=== PATIENT | female | born 1950 | race Caucasian/White ===

== ENCOUNTER 2019-02-13 13:20 | Inpatient (IN) | payer MEDICARE, BC ==
[2019-02-13] MEDS ORDERED: Albuterol/Ipratropium 3.0-0.5 MG/3 ML Neb Soln NEB ONE ×2 (13:36→15:23)
--- NOTE | 2019-02-13 13:42 | EDM.PDOC ---
ED HPI GENERAL MEDICAL PROBLEM - General Chief Complaint: Respiratory Problem Stated Complaint: shortness of breath Time Seen by Provider: 02/13/19 13:30 Source of Information: Reports: Patient History Limitations: Reports: No Limitations - History of Present Illness INITIAL COMMENTS - FREE TEXT/NARRATIVE: 68 YO WF presents to ER with productive cough, subjective fever and progressive shortness of breath x 6 days. Pt with remote history of tobacco use. Pt with history of chronic bronchitis/COPD in the past. Pt denies any chest pain, nausea /vomiting, hemoptysis. Pt reports using her rescue inhaler 3x/day over the last 6 days with minimal improvement. Pt denies supplemental oxygen use in the past, but required O2 once paramedics arrived due to progressive shortness of breath. Pt reports getting pneumococcal vaccine but denies influenza. Onset Date: 02/07/19 Duration: Day(s): (6) Location: Reports: Chest Severity: Moderate Improves with: Reports: Rest Worsens with: Reports: Breathing Associated Symptoms: Reports: cough w sputum, Fever/Chills, Malaise, Shortness of Breath. Denies: Chest Pain, Diaphoresis, Headaches, Loss of Appetite, Nausea /Vomiting, Rash, Seizure, Syncope, Weakness - Related Data Allergies Allergy/AdvReac Type Severity Reaction Status Date / Time bacitracin [From Cortisporin] Allergy RED EYES Verified 02/13/19 13:37 bacitracin zinc Allergy RED EYES Verified 02/13/19 13:37 [From Cortisporin] ciprofloxacin Allergy Hives Verified 02/13/19 13:37 codeine Allergy Nausea Verified 02/13/19 13:37 hydrocortisone Allergy RED EYES Verified 02/13/19 13:37 [From Cortisporin] morphine Allergy RUNNY Verified 02/13/19 13:37 NOSE/WATERY EYES neomycin [From Cortisporin] Allergy RED EYES Verified 02/13/19 13:37 neomycin sulfate Allergy RED EYES Verified 02/13/19 13:37 [From Cortisporin] Penicillins Allergy Hives Verified 02/13/19 13:37 phenazopyridine HCl Allergy UNKNOWN Verified 02/13/19 13:37 [From Pyridium] polymyxin B Allergy RED EYES Verified 02/13/19 13:37 [From Cortisporin] polymyxin B sulfate Allergy RED EYES Verified 02/13/19 13:37 [From Cortisporin] prednisone Allergy Hallucinati Verified 02/13/19 15:05 ons Euinzkh-Oew-Qus Reductase Allergy Leg Cramps Verified 02/13/19 15:05 Inhibitor Home Meds: Home Meds Aspirin [Halfprin] 81 mg PO BRK 06/25/15 [History] Cholecalciferol (Vitamin D3) [Vitamin D3] 2,000 units PO DAILY 06/25/15 [History ] Cyanocobalamin (Vitamin B-12) [Vitamin B-12] 2,000 mcg PO DAILY 06/25/15 [ History] ALPRAZolam [Alprazolam] 0.25 mg PO BEDTIME PRN 02/13/19 [History] Albuterol Sulfate [Albuterol Sulfate Hfa] 2 puff INH Q6H PRN 02/13/19 [History] Alendronate Sodium [Fosamax] 70 mg PO ACBREAKFAST 02/13/19 [History] Ezetimibe [Zetia] 10 mg PO DAILY 02/13/19 [History] Magnesium Oxide 500 mg PO DAILY 02/13/19 [History] Metoprolol Tartrate [Lopressor] 50 mg PO BID 02/13/19 [History] Mirtazapine [Remeron] 30 mg PO BEDTIME 02/13/19 [History] Sertraline [Zoloft] 25 mg PO DAILY 02/13/19 [History] ED ROS GENERAL - Review of Systems Review Of Systems: See Below Constitutional: Reports: No Symptoms HEENT: Reports: No Symptoms Respiratory: Reports: Shortness of Breath, Wheezing, Cough, Sputum. Denies: Hemoptysis Cardiovascular: Reports: No Symptoms Endocrine: Reports: No Symptoms GI/Abdominal: Reports: No Symptoms : Reports: No Symptoms Musculoskeletal: Reports: No Symptoms Skin: Reports: No Symptoms Neurological: Reports: No Symptoms Psychiatric: Reports: No Symptoms Hematologic/Lymphatic: Reports: No Symptoms Immunologic: Reports: No Symptoms ED EXAM, GENERAL - Physical Exam Exam: See Below Exam Limited By: No Limitations General Appearance: Alert, WD/WN, No Apparent Distress Nose: Normal Inspection, Normal Mucosa, No Blood Throat/Mouth: Normal Inspection, Normal Lips, Normal Teeth, Normal Gums, Normal Oropharynx, Normal Voice, No Airway Compromise Head: Atraumatic, Normocephalic Neck: Normal Inspection, Supple, Non-Tender, Full Range of Motion Respiratory/Chest: Chest Non-Tender, Rales, Wheezing, Accessory Muscle Use, Prolonged Expiration Cardiovascular: Normal Peripheral Pulses, Regular Rate, Rhythm, No Edema, No Gallop, No JVD, No Murmur, No Rub GI/Abdominal: Normal Bowel Sounds, Soft, Non-Tender, No Organomegaly, No Distention, No Abnormal Bruit, No Mass Back Exam: Normal Inspection, Full Range of Motion, NT Extremities: Normal Inspection, Normal Range of Motion, Non-Tender, Normal Capillary Refill, No Pedal Edema Neurological: Alert, Oriented, CN II-XII Intact, Normal Cognition, Normal Gait, Normal Reflexes, No Motor/Sensory Deficits Psychiatric: Normal Affect, Normal Mood Skin Exam: Warm, Dry, Intact, Normal Color, No Rash Lymphatic: No Adenopathy EKG INTERPRETATION EKG Date: 02/13/19 Time: 13:49 Rhythm: NSR Rate (Beats/Min): 90 [place]: Normal P-Wave: Present QRS: Normal ST-T: Normal QT: Normal Course - Vital Signs Last Recorded V/S: Last Vital Signs Temp 35.4 C 02/13/19 13:20 Pulse 90 02/13/19 13:20 Resp 20 02/13/19 13:20 BP 105/66 02/13/19 13:20 Pulse Ox 98 02/13/19 13:20 - Orders/Labs/Meds Orders: Active Orders 24 hr Category Date Time Status Cardiac Monitoring [RC] . DIRECTED Care 02/13/19 13:36 Active EKG Documentation Completion [RC] ASDIRECTED Care 02/13/19 13:37 Active Oxygen Therapy, ED [RC] ASDIRECTED Care 02/13/19 13:36 Active RT Aerosol Therapy [RC] ASDIRECTED Care 02/13/19 13:37 Active RT Aerosol Therapy [RC] ASDIRECTED Care 02/13/19 15:23 Active Labs: Laboratory Tests 02/13/19 02/13/19 Range/Units 14:15 14:15 WBC 8.41 (5.00-10.00) 10^3/uL RBC 5.84 H (3.80-5.50) 10^6/uL Hgb 16.8 H (12.0-16.0) g/dL Hct 51.3 H (37.0-47.0) % MCV 87.8 (82.0-92.0) fL MCH 28.8 (27.0-31.0) pg MCHC 32.7 (32.0-36.0) g/dL RDW 13.9 (11.5-14.5) % Plt Count 218 (150-400) 10^3/uL MPV 10.4 (7.4-10.4) fL Immature Gran % (Auto) 0.2 (0.0-5.0) % Neut % (Auto) 70.9 H (50.0-70.0) % Lymph % (Auto) 20.6 (20.0-40.0) % Walsh % (Auto) 8.1 H (2.0-8.0) % Eos % (Auto) 0.0 L (1.0-3.0) % Baso % (Auto) 0.2 (0.0-1.0) % Immature Gran # (Auto) 0.02 (0.00-0.50) 10^3/uL Neut # (Auto) 5.96 (2.50-7.00) 10^3/uL Lymph # (Auto) 1.73 (1.00-4.00) 10^3/uL Walsh # (Auto) 0.68 (0.10-0.80) 10^3/uL Eos # (Auto) 0.00 L (0.10-0.30) 10^3/uL Baso # (Auto) 0.02 (0.00-0.10) 10^3/uL Sodium 140 (136-145) mmol/L Potassium 4.0 (3.3-5.3) mmol/L Chloride 102 (98-115) mmol/L Carbon Dioxide 27.8 (21.0-32.0) mmol/L Anion Gap 14.2 (5-15) mmol/L BUN 30 H (6-25) mg/dL Creatinine 1.30 H (0.51-1.17) mg/dL Est Cr Clr Drug Dosing 33.78 mL/min Estimated GFR (MDRD) 41 mL/min Glucose 123 H (75 - 99) mg/dL Calcium 9.5 (8.7-10.3) mg/dL Total Bilirubin 0.3 (0.2-1.0) mg/dL AST 32 (15-37) U/L ALT 38 (12-78) U/L Alkaline Phosphatase 75 (46-116) IU/L Creatine Kinase 45 (26-276) U/L CK-MB (CK-2) 0.70 (0.00-4.30) ng/mL Troponin I 0.07 (0.00-0.070) ng/mL B-Natriuretic Peptide 60 (0-100) pg/mL Total Protein 7.7 (6.4-8.2) g/dL Albumin 2.89 L (3.00-4.80) g/dL Meds: Medications Discontinued Medications Generic Name Dose Route Start Last Admin Trade Name Freq PRN Reason Stop Dose Admin Albuterol/Ipratropium 3 ml 02/13/19 13:36 02/13/19 13:43 Duoneb 3.0-0.5 Mg/3 Ml NEB 02/13/19 13:37 3 ml ONETIME ONE Administration Albuterol/Ipratropium 3 ml 02/13/19 15:23 02/13/19 15:32 Duoneb 3.0-0.5 Mg/3 Ml NEB 02/13/19 15:24 3 ml ONETIME ONE Administration Methylprednisolone Sodium Succinate 125 mg 02/13/19 15:14 02/13/19 15:32 Solu-Medrol IVPUSH 02/13/19 15:15 125 mg ONETIME ONE Administration - Radiology Interpretation Free Text/Narrative:: CXR- NAD Departure - Departure Time of Disposition: 15:43 Disposition: Admitted As Inpatient 65 Condition: Fair Clinical Impression: COPD exacerbation - Discharge Information Referrals: Mariel Beckwith, [employer] [Primary Care Provider] - Forms: ED Department Discharge - My Orders Last 24 Hours: My Active Orders 02/13/19 13:36 Cardiac Monitoring [RC] . DIRECTED Oxygen Therapy, ED [RC] ASDIRECTED 02/13/19 13:37 EKG Documentation Completion [RC] ASDIRECTED RT Aerosol Therapy [RC] ASDIRECTED 02/13/19 15:23 RT Aerosol Therapy [RC] ASDIRECTED - Assessment/Plan Last 24 Hours: My Active Orders 02/13/19 13:36 Cardiac Monitoring [RC] . DIRECTED Oxygen Therapy, ED [RC] ASDIRECTED 02/13/19 13:37 EKG Documentation Completion [RC] ASDIRECTED RT Aerosol Therapy [RC] ASDIRECTED 02/13/19 15:23 RT Aerosol Therapy [RC] ASDIRECTED Assessment:: 1. COPD exacerbation Plan: 1. Admit to medicine- Dr Mathew Sheikh 2. duonebs Q4 and PRN 3. solumedrol 80mg Q8 4. supplemental O2
[2019-02-13 14:52] LABS: ANION GAP 14.2 mmol/L (5-15)
--- NOTE | 2019-02-13 14:52 | CR ---
[id number] RAD/RAD Chest PA And Lateral EXAM: RAD Chest PA And Lateral CLINICAL DATA: SHORTNESS OF BREATH COMPARISON: NO PREVIOUS SIMILAR EXAM IS AVAILABLE. FINDINGS: There appears to be mild edema The lungs are hyperaerated The cardiomediastinal contour is upper normal IMPRESSION: APPEARANCE OF MILD EDEMA William Hernandez MD 02/13/19 [id number] Thank you for allowing us to participate in the care of your patient.
[2019-02-13] MEDS ORDERED: methylPREDNISolone Sodium Succinate 125 MG/2 ML SDV IVPUSH ONE (15:14)
[2019-02-13] MEDS ORDERED: Sodium Chloride 0.9% 10 ML Syringe FLUSH PRN (15:44)
[2019-02-13] MEDS ORDERED: ALPRAZolam 0.25 MG Tab PO PRN (15:59)
[2019-02-13] MEDS ORDERED: Albuterol 8 GM Inhaler INH PRN (15:59)
[2019-02-13] MEDS: Albuterol/Ipratropium 3.0-0.5 MG/3 ML Neb Soln NEB SCH ×3 (16:35→23:41)
[2019-02-13] MEDS ORDERED: Ondansetron 4 MG/2 ML SDV IVPUSH PRN (17:11)
[2019-02-13] MEDS: cefTRIAXone 1 GM Vial IVPUSH SCH (17:56)
[2019-02-13] MEDS: Metoprolol Tartrate 50 MG Tab PO SCH (20:32)
[2019-02-13] MEDS ORDERED: Mirtazapine 15 MG Tab PO SCH (21:00)
[2019-02-14] MEDS: Albuterol/Ipratropium 3.0-0.5 MG/3 ML Neb Soln NEB SCH ×5 (04:43→23:29)
[2019-02-14] MEDS ORDERED: Alendronate 70 MG Tab PO SCH (07:30)
[2019-02-14 07:41] LABS: ANION GAP 14.3 mmol/L (5-15)
[2019-02-14] MEDS ORDERED: predniSONE 20 MG Tab PO SCH (08:00)
[2019-02-14] MEDS: Aspirin 81 MG Tab.EC PO SCH (08:04)
[2019-02-14] MEDS: Cholecalciferol (Vitamin D3) 25 MCG Tab PO SCH (08:04)
[2019-02-14] MEDS: Sertraline 50 MG Tab PO SCH (08:05)
[2019-02-14] MEDS: Cyanocobalamin (Vitamin B12) 500 MCG Tab PO SCH (08:05)
[2019-02-14] MEDS: Magnesium Oxide 500 MG Tab PO SCH ×2 (08:05→10:01)
[2019-02-14] MEDS: Metoprolol Tartrate 50 MG Tab PO SCH ×2 (08:06→20:55)
[2019-02-14] MEDS: Ezetimibe 10 MG Tab PO SCH (08:09)
[2019-02-14] MEDS ORDERED: methylPREDNISolone Sodium Succinate 125 MG/2 ML SDV IVPUSH SCH (09:00)
--- NOTE | 2019-02-14 09:18 | PCM.PN ---
- General Info Date of Service: 02/14/19 Functional Status: Reports: Pain Controlled, Tolerating Diet, Ambulating, Urinating. Denies: New Symptoms - Review of Systems General: Reports: Weakness, Fatigue, Appetite. Denies: Fever, Chills HEENT: Reports: No Symptoms Pulmonary: Reports: Cough, Sputum, Wheezing. Denies: Shortness of Breath, Hemoptysis Cardiovascular: Denies: Chest Pain, Palpitations, Edema Gastrointestinal: Denies: Abdominal Pain, Nausea, Vomiting Genitourinary: Denies: Dysuria, Hematuria Musculoskeletal: Reports: No Symptoms Skin: Reports: No Symptoms Neurological: Reports: Weakness. Denies: Headache, Trouble Speaking Psychiatric: Reports: No Symptoms - Patient Data Vitals - Most Recent: Last Vital Signs Temp 98.1 F 02/14/19 06:11 Pulse 82 02/14/19 08:06 Resp 24 H 02/14/19 06:11 BP 102/56 L 02/14/19 08:06 Pulse Ox 92 L 02/14/19 07:37 Weight - Most Recent: 170 lb 8 oz I&O - Last 24 Hours: Intake & Output 02/13/19 02/14/19 02/14/19 22:59 06:59 14:59 Intake Total 540 350 Balance 540 350 Lab Results Last 24 Hours: Laboratory Results - last 24 hr 02/13/19 02/13/19 02/14/19 Range/Units 14:15 14:15 07:10 WBC 8.41 4.94 L (5.00-10.00) 10^3/uL RBC 5.84 H 5.17 (3.80-5.50) 10^6/uL Hgb 16.8 H 14.8 D (12.0-16.0) g/dL Hct 51.3 H 45.2 (37.0-47.0) % MCV 87.8 87.4 (82.0-92.0) fL MCH 28.8 28.6 (27.0-31.0) pg MCHC 32.7 32.7 (32.0-36.0) g/dL RDW 13.9 13.5 (11.5-14.5) % Plt Count 218 199 (150-400) 10^3/uL MPV 10.4 10.5 H (7.4-10.4) fL Immature Gran % (Auto) 0.2 0.6 (0.0-5.0) % Neut % (Auto) 70.9 H 67.6 (50.0-70.0) % Lymph % (Auto) 20.6 22.7 (20.0-40.0) % Lyman % (Auto) 8.1 H 9.1 H (2.0-8.0) % Eos % (Auto) 0.0 L 0.0 L (1.0-3.0) % Baso % (Auto) 0.2 0.0 (0.0-1.0) % Immature Gran # (Auto) 0.02 0.03 (0.00-0.50) 10^3/uL Neut # (Auto) 5.96 3.34 (2.50-7.00) 10^3/uL Lymph # (Auto) 1.73 1.12 (1.00-4.00) 10^3/uL Lyman # (Auto) 0.68 0.45 (0.10-0.80) 10^3/uL Eos # (Auto) 0.00 L 0.00 L (0.10-0.30) 10^3/uL Baso # (Auto) 0.02 0.00 (0.00-0.10) 10^3/uL Atypical Lymphocytes Few Sodium 140 (136-145) mmol/L Potassium 4.0 (3.3-5.3) mmol/L Chloride 102 (98-115) mmol/L Carbon Dioxide 27.8 (21.0-32.0) mmol/L Anion Gap 14.2 (5-15) mmol/L BUN 30 H (6-25) mg/dL Creatinine 1.30 H (0.51-1.17) mg/dL Est Cr Clr Drug Dosing 33.78 mL/min Estimated GFR (MDRD) 41 mL/min Glucose 123 H (75 - 99) mg/dL Calcium 9.5 (8.7-10.3) mg/dL Total Bilirubin 0.3 (0.2-1.0) mg/dL AST 32 (15-37) U/L ALT 38 (12-78) U/L Alkaline Phosphatase 75 (46-116) IU/L Creatine Kinase 45 (26-276) U/L CK-MB (CK-2) 0.70 (0.00-4.30) ng/mL Troponin I 0.07 (0.00-0.070) ng/mL B-Natriuretic Peptide 60 (0-100) pg/mL Total Protein 7.7 (6.4-8.2) g/dL Albumin 2.89 L (3.00-4.80) g/dL 02/14/19 Range/Units 07:10 WBC (5.00-10.00) 10^3/uL RBC (3.80-5.50) 10^6/uL Hgb (12.0-16.0) g/dL Hct (37.0-47.0) % MCV (82.0-92.0) fL MCH (27.0-31.0) pg MCHC (32.0-36.0) g/dL RDW (11.5-14.5) % Plt Count (150-400) 10^3/uL MPV (7.4-10.4) fL Immature Gran % (Auto) (0.0-5.0) % Neut % (Auto) (50.0-70.0) % Lymph % (Auto) (20.0-40.0) % Lyman % (Auto) (2.0-8.0) % Eos % (Auto) (1.0-3.0) % Baso % (Auto) (0.0-1.0) % Immature Gran # (Auto) (0.00-0.50) 10^3/uL Neut # (Auto) (2.50-7.00) 10^3/uL Lymph # (Auto) (1.00-4.00) 10^3/uL Lyman # (Auto) (0.10-0.80) 10^3/uL Eos # (Auto) (0.10-0.30) 10^3/uL Baso # (Auto) (0.00-0.10) 10^3/uL Atypical Lymphocytes Sodium 140 (136-145) mmol/L Potassium 4.4 (3.3-5.3) mmol/L Chloride 102 (98-115) mmol/L Carbon Dioxide 28.1 (21.0-32.0) mmol/L Anion Gap 14.3 (5-15) mmol/L BUN 32 H (6-25) mg/dL Creatinine 1.11 (0.51-1.17) mg/dL Est Cr Clr Drug Dosing 39.57 mL/min Estimated GFR (MDRD) 49 mL/min Glucose 151 H (75 - 99) mg/dL Calcium 9.3 (8.7-10.3) mg/dL Total Bilirubin (0.2-1.0) mg/dL AST (15-37) U/L ALT (12-78) U/L Alkaline Phosphatase (46-116) IU/L Creatine Kinase (26-276) U/L CK-MB (CK-2) (0.00-4.30) ng/mL Troponin I (0.00-0.070) ng/mL B-Natriuretic Peptide (0-100) pg/mL Total Protein (6.4-8.2) g/dL Albumin (3.00-4.80) g/dL Med Orders - Current: Current Medications Albuterol (Ventolin Hfa) 0 gm INH Q6H PRN PRN Reason: Wheezing Albuterol/Ipratropium (Duoneb 3.0-0.5 Mg/3 Ml) 3 ml NEB Q4H [facility] Last Admin: 02/14/19 07:37 Dose: 3 ml Aspirin (Halfprin) 81 mg PO BRK [facility] Last Admin: 02/14/19 08:04 Dose: 81 mg Ceftriaxone Sodium (Rocephin) 1 gm IVPUSH Q24H [facility] Last Admin: 02/13/19 17:56 Dose: 1 gm Cholecalciferol (Vitamin D3) 50 mcg PO DAILY [facility] Last Admin: 02/14/19 08:04 Dose: 50 mcg Cyanocobalamin (Vitamin B12) 2,000 mcg PO DAILY [facility] Last Admin: 02/14/19 08:05 Dose: 2,000 mcg Ezetimibe (Zetia) 10 mg PO DAILY [facility] Last Admin: 02/14/19 08:09 Dose: 10 mg Magnesium Oxide (Magnesium Oxide) 500 mg PO DAILY [facility] Last Admin: 02/14/19 08:05 Dose: 500 mg Methylprednisolone Sodium Succinate (Solu-Medrol) 80 mg IVPUSH DAILY [facility] Last Admin: 02/14/19 08:07 Dose: 80 mg Metoprolol Tartrate (Lopressor) 50 mg PO BID [facility] Last Admin: 02/14/19 08:06 Dose: 50 mg Ondansetron HCl (Zofran) 4 mg IVPUSH Q6H PRN PRN Reason: Nausea/Vomiting Sertraline HCl (Zoloft) 25 mg PO DAILY [facility] Last Admin: 02/14/19 08:05 Dose: 25 mg Sodium Chloride (Saline Flush) 10 ml FLUSH Q8HR PRN PRN Reason: keep vein open Last Admin: 02/13/19 17:56 Dose: 10 ml Discontinued Medications Albuterol/Ipratropium (Duoneb 3.0-0.5 Mg/3 Ml) 3 ml NEB ONETIME ONE Stop: 02/13/19 13:37 Last Admin: 02/13/19 13:43 Dose: 3 ml Albuterol/Ipratropium (Duoneb 3.0-0.5 Mg/3 Ml) 3 ml NEB ONETIME ONE Stop: 02/13/19 15:24 Last Admin: 02/13/19 15:32 Dose: 3 ml Alendronate Sodium (Fosamax) 70 mg PO ACBREAKFAST [facility] Alprazolam (Xanax) 0.25 mg PO BEDTIME PRN PRN Reason: Anxiety Methylprednisolone Sodium Succinate (Solu-Medrol) 125 mg IVPUSH ONETIME ONE Stop: 02/13/19 15:15 Last Admin: 02/13/19 15:32 Dose: 125 mg Mirtazapine (Remeron) 30 mg PO BEDTIME VIJAY - Exam Quality Assessment: Supplemental Oxygen (3L/NC) General: Alert, Oriented, Cooperative, No Acute Distress HEENT: Pupils Equal, Pupils Reactive Neck: Supple, Trachea Midline Lungs: Wheezing (Expiratory wheezes, especially prominent in upper cheng; otherwise clear). No: Decreased Breath Sounds, Rales, Rhonchi, Rub Cardiovascular: Regular Rate, Regular Rhythm, No Murmurs GI/Abdominal Exam: Normal Bowel Sounds, Soft, Non-Tender, No Distention (Female) Exam: Deferred Back Exam: Normal Inspection Extremities: Normal Inspection, No Pedal Edema Peripheral Pulses: 2+: Dorsalis Pedis (L), Dorsalis Pedis (R) Skin: Warm, Dry Neurological: No New Focal Deficit, Normal Gait, Normal Speech, Strength Equal Bilateral Psy/Mental Status: Alert, Normal Affect, Normal Mood - Problem List Review Problem List Initiated/Reviewed/Updated: Yes - Plan Plan:: Progress Note 68 year old female admitted inpatient through the ED yesterday for COPD exacerbation. Patient states she had a productive cough for a week and developed shortness of breath that prevented her from walking across the room to the chair. There is no history of COPD or other chronic lung disease, however patient does have a 24.5 pack year smoking history. She states that she quit in 2016, but does still smoke several times a week. She has a rescue inhaler that she uses up to three times daily, but this provided her with little to no relief. She does not use supplemental oxygen at home, however she has been using oxygen to maintain saturation since EMS arrived. Prehospital course/Pertinent ED Findings: --VS: afebrile, EMS report 89% on room air, NRB mask applied to raise sat 98% on arrival --Labs: No neutrophilia, mild polycythemia, no electrolyte abnormalities, troponin 0.07 --EKG: NSR without ST-T wave changes --Duonebs given times two in the ED and a one time dose of Solu-Medrol 125mg IV x 1, started on antibiotics --Admitted inpatient to Dr. Carmona for COPD exacerbation, duonebs every four hours and PRN, and Solu-Medrol 80mg IV daily Primary Hospital Problems: --COPD exacerbation --Nicotine abuse --Weakness Chronic/Stable Problems: --CAD with stent; H/O NV 2010 continue on aspirin --Dylipidemia --HTN --CKD, stage 3 --Depression/anxiety --Insomnia --Osteopenia --Obesity Disposition/Overall Plan: --Continue inpatient stay --De-escalate the DuoNebs to every six hours --De-escalate IV Solu-Medrol to prednisone 40mg orally daily --Continue antibiotic, secondary to increased sputum production --RT to titrate oxygen; assess for home oxygen needs; --Peak flow --Pulmonary toileting --Assess oxygen requirements --DVT prophylaxis: Lovenox 40mg SQ every 24 hours --Assess ABG since new oxygen requirement --GI stress prophylaxis, secondary to ASA, Duonebs, Bisphosphonate, stress and smoking history: Omeprazole orally --ASCVD 13.1%; H/O NV with stenting, statin intolerant --Update Code status Discharge Planning: --Patient will need LABA/LAMA, will work with pharmacy for discharge --Nurses to assess immunization status --Ongoing tobacco cessation education --Anticipate discharge in the AM with intense education and pharmacological management --ASCVD 13.1%: H/O NV with stenting; statin intolerant; likely [employer] 9 candidate , needs to be followed up on outpatient --Will have pharmacy consult for history of statin use
--- NOTE | 2019-02-14 10:02 | HP ---
PATIENT PROFILE: The patient is a 68-year-old female patient who presents to the emergency room with productive cough, subjective fever, and progressive shortness of breath for the last 5 days. The patient has a remote history of tobacco usage. She has history of COPD/bronchitis/bronchial asthma in the past. She also has a history of coronary artery disease. She denied having any nausea, vomiting, hemoptysis. She has been using rescue inhaler 3 times a day, but for the last 6 days has not been noticing much improvement on the inhalers. She denies using supplemental oxygen in the past, but required oxygen once the paramedics arrived due to progressive shortness of breath. She does has a history of having received a pneumococcal vaccine, but denied any influenza vaccine. PAST MEDICAL HISTORY: Includes COPD, bronchial asthma, chronic anxiety, hypercholesterolemia, coronary artery disease, and depression. Also anxiety. FAMILY HISTORY: Nil significant. HOME MEDICATIONS: Include aspirin 81 mg daily, cholecalciferol D3 2000 units daily, B12 2000 mcg daily, alprazolam 0.25 mg at bedtime on a p.r.n. basis, albuterol 2 puffs inhalation q.6h p.r.n., alendronate 70 mg daily at breakfast, Zetia 10 mg daily, magnesium oxide 500 mg daily, metoprolol tartrate 50 mg b.i.d., Remeron 30 mg at bedtime, and Zoloft 25 mg daily. REVIEW OF SYSTEMS: HEAD: No complaints. EYES: No complaints. CHEST: See present history. CARDIOVASCULAR SYSTEM: No complaints of chest pain. No peripheral edema. GI: No complaints. BACK: No complaints. NEUROLOGICAL: No complaints. PSYCHIATRIC: No complaints. HEMATOLOGIC: No complaints. PHYSICAL EXAMINATION: GENERAL: Reveals a very pleasant, elderly patient in [id number] distress. My examination is performed at 7:30 p.m. VITAL SIGNS: Temperature is 35.4, pulse is around 100, respirations 20, blood pressure is 110/68, pulse oximeter 98%. HEENT: Head negative. Eyes, arcus senilis. Ears, nose, and throat normal. NECK: Supple. Full range of motion. No midline swellings. LUNGS: Reveal a few crackles bilaterally. Breath sounds are quiet. Not much air entry is noted. Percussion note is tympanic. HEART: Regular rhythm. Grade 1/6 systolic murmur in the apex. No thrills. ABDOMEN: Soft. No masses present. No hepatosplenomegaly. No abdominal bruits. Femoral pulses full. EXTREMITIES: Normal. NEUROLOGIC: Intact. RECTAL: Deferred. PELVIC: Deferred. LABORATORY DATA AND DIAGNOSTIC STUDIES: EKG shows normal P waves, normal sinus rhythm. Hemoglobin is 16.8, white count 8.41, neutrophils are 70.9, normal up to 70. Monos 8.1, normal 8. Chest x-ray shows mild edema. Also evidence of chronic obstructive pulmonary disease. The patient's BUN and creatinine are elevated. CMP shows creatinine 1.30 and BUN of 30. Glucose 123. Other values are negative. BNP is normal at 60. FINAL DIAGNOSES: 1. Acute exacerbation of chronic obstructive pulmonary disease. Rule out infectious process. Rule out acute bronchitis. Plan will be to start her on antibiotics, Rocephin, and continue to inhalation respiratory treatments with DuoNeb and albuterol on a p.r.n. basis. We will also give her IV steroids cautiously. 2. Coronary artery disease, stable. BNP stable. No evidence of congestive heart failure. 3. Chronic anxiety, stable. 4. Hypercholesterolemia. We will order lipid profile for the morning. 5. Osteoporosis, stable. 6. Hypertension, stable. 7. Insomnia, stable. 8. Depression, stable. 9. Mild dehydration. We will repeat the BUN and creatinine in the a.m. after adequate hydration. PLAN: Plan is to continue Zoloft for depression and Remeron for the insomnia, metoprolol 50 mg b.i.d. for hypertension, and Zetia 10 mg daily for hypercholesterolemia. Also, alendronate 70 mg daily for her osteoporosis. /[id number]/MODL
[2019-02-14] MEDS: Omeprazole 20 MG Cap.CR PO SCH (11:08)
[2019-02-14] MEDS: Enoxaparin 40 MG/0.4 ML Syringe SUBCUT SCH (11:08)
[2019-02-14 11:09] LABS: O2 FLOW RATE 3 L/min
[2019-02-14 11:10] LABS: BASE EXCESS ARTERIAL 5 mmol/L (-2-3); BICARBONATE,ARTERIAL 31.2 mmol/L (22-26); O2 SATURATION ARTERIAL 90 % (95-98); PCO2 ARTERIAL 58 mmHG (35-45); PO2 ARTERIAL 64 mmHG (80-105)
[2019-02-14 11:14] LABS: O2 DELIVERY DEVICE NASAL CANNULA
[2019-02-14] MEDS: cefTRIAXone 1 GM Vial IVPUSH SCH (16:20)
[2019-02-14] MEDS ORDERED: EPINEPHrine 1:10,000 1 MG/10 ML Syringe IVPUSH PRN (18:17)
[2019-02-14] MEDS ORDERED: Atropine 0.1 MG/ML 10 ML Syringe IVPUSH PRN (18:17)
[2019-02-14] MEDS ORDERED: Lidocaine 2% 100 MG/5 ML Syringe IVPUSH PRN (18:17)
[2019-02-14] MEDS ORDERED: Nitroglycerin 0.4 MG Tab.SL SL PRN (18:17)
[2019-02-14] MEDS ORDERED: Melatonin 3 MG Tab PO PRN (19:43)
[2019-02-15] MEDS: Albuterol/Ipratropium 3.0-0.5 MG/3 ML Neb Soln NEB SCH ×4 (05:45→23:05)
[2019-02-15] MEDS: Omeprazole 20 MG Cap.CR PO SCH (07:39)
[2019-02-15] MEDS ORDERED: predniSONE 20 MG Tab PO SCH (08:00)
[2019-02-15] MEDS: Aspirin 81 MG Tab.EC PO SCH (08:01)
[2019-02-15] MEDS: Cholecalciferol (Vitamin D3) 25 MCG Tab PO SCH (08:43)
[2019-02-15] MEDS: Ezetimibe 10 MG Tab PO SCH (08:43)
[2019-02-15] MEDS: Magnesium Oxide 500 MG Tab PO SCH (08:44)
[2019-02-15] MEDS: Cyanocobalamin (Vitamin B12) 500 MCG Tab PO SCH (08:44)
[2019-02-15] MEDS: Sertraline 50 MG Tab PO SCH (08:44)
[2019-02-15] MEDS: Metoprolol Tartrate 50 MG Tab PO SCH ×3 (08:45→23:14)
--- NOTE | 2019-02-15 10:19 | PCM.PN ---
- General Info Date of Service: 02/15/19 Functional Status: Reports: Tolerating Diet, Urinating. Denies: Ambulating, New Symptoms, Incentive Spirometry (bronchospasm upon usage) - Review of Systems General: Reports: No Symptoms. Denies: Fever, Chills HEENT: Reports: No Symptoms Pulmonary: Reports: Cough, Wheezing. Denies: Sputum Cardiovascular: Reports: No Symptoms. Denies: Chest Pain, Edema Gastrointestinal: Reports: No Symptoms Genitourinary: Reports: No Symptoms Musculoskeletal: Reports: No Symptoms Skin: Reports: No Symptoms Neurological: Reports: No Symptoms Psychiatric: Reports: No Symptoms - Patient Data Vitals - Most Recent: Last Vital Signs Temp 97.6 F 02/15/19 06:54 Pulse 76 02/15/19 08:45 Resp 20 02/15/19 06:54 BP 112/66 02/15/19 08:45 Pulse Ox 80 L 02/15/19 08:45 Weight - Most Recent: 173 lb 2 oz I&O - Last 24 Hours: Intake & Output 02/14/19 02/15/19 02/15/19 22:59 06:59 14:59 Intake Total 440 200 Output Total 500 600 Balance -60 -400 Lab Results Last 24 Hours: Laboratory Results - last 24 hr 02/14/19 Range/Units 11:00 ABG pH 7.34 L (7.35-7.45) ABG pCO2 58 H (35-45) mmHG ABG pO2 64 L (80-105) mmHG ABG HCO3 31.2 H (22-26) mmol/L ABG Total CO2 33 H (23-27) mmol/L ABG O2 Saturation 90 L (95-98) % ABG Base Excess 5 H (-2-3) mmol/L O2 Delivery Device Nasal cannula Oxygen Flow Rate 3 L/min Med Orders - Current: Current Medications Albuterol (Ventolin Hfa) 0 gm INH Q6H PRN PRN Reason: Wheezing Albuterol/Ipratropium (Duoneb 3.0-0.5 Mg/3 Ml) 3 ml NEB Q6HRRT [facility] Last Admin: 02/15/19 05:45 Dose: 3 ml Aspirin (Halfprin) 81 mg PO BRK [facility] Last Admin: 02/15/19 08:01 Dose: 81 mg Atropine Sulfate (Atropine 0.1 Mg/Ml) 0 mg IVPUSH ASDIRECTED PRN PRN Reason: Heart. Ceftriaxone Sodium (Rocephin) 1 gm IVPUSH Q24H [facility] Last Admin: 02/14/19 16:20 Dose: 1 gm Cholecalciferol (Vitamin D3) 50 mcg PO DAILY [facility] Last Admin: 02/15/19 08:43 Dose: 50 mcg Cyanocobalamin (Vitamin B12) 2,000 mcg PO DAILY [facility] Last Admin: 02/15/19 08:44 Dose: 2,000 mcg Ezetimibe (Zetia) 10 mg PO DAILY [facility] Last Admin: 02/15/19 08:43 Dose: 10 mg Enoxaparin Sodium (Lovenox) 40 mg SUBCUT Q24H [facility] Last Admin: 02/14/19 11:08 Dose: 40 mg Epinephrine HCl (Epinephrine 1:10,000) 1 mg IVPUSH ASDIRECTED PRN PRN Reason: Heart. Lidocaine HCl (Xylocaine 2%) 0 mg IVPUSH ASDIRECTED PRN PRN Reason: Heart. Magnesium Oxide (Magnesium Oxide) 500 mg PO DAILY [facility] Last Admin: 02/15/19 08:44 Dose: 500 mg Melatonin (Melatonin) 6 mg PO BEDTIME PRN PRN Reason: Insomnia Last Admin: 02/14/19 20:56 Dose: 6 mg Metoprolol Tartrate (Lopressor) 50 mg PO BID [facility] Last Admin: 02/15/19 08:45 Dose: 50 mg Nitroglycerin (Nitrostat) 0.4 mg SL ASDIRECTED PRN PRN Reason: Heart. Omeprazole (Omeprazole) 20 mg PO ACBREAKFAST [facility] Last Admin: 02/15/19 07:39 Dose: 20 mg Ondansetron HCl (Zofran) 4 mg IVPUSH Q6H PRN PRN Reason: Nausea/Vomiting Last Admin: 02/14/19 19:48 Dose: 4 mg Prednisone (Prednisone) 40 mg PO WITHBREAKFAST [facility] Last Admin: 02/15/19 09:27 Dose: Not Given Sertraline HCl (Zoloft) 25 mg PO DAILY [facility] Last Admin: 02/15/19 08:44 Dose: 25 mg Sodium Chloride (Saline Flush) 10 ml FLUSH Q8HR PRN PRN Reason: keep vein open Last Admin: 02/13/19 17:56 Dose: 10 ml Discontinued Medications Albuterol/Ipratropium (Duoneb 3.0-0.5 Mg/3 Ml) 3 ml NEB ONETIME ONE Stop: 02/13/19 13:37 Last Admin: 02/13/19 13:43 Dose: 3 ml Albuterol/Ipratropium (Duoneb 3.0-0.5 Mg/3 Ml) 3 ml NEB ONETIME ONE Stop: 02/13/19 15:24 Last Admin: 02/13/19 15:32 Dose: 3 ml Albuterol/Ipratropium (Duoneb 3.0-0.5 Mg/3 Ml) 3 ml NEB Q4H [facility] Last Admin: 02/14/19 07:37 Dose: 3 ml Alendronate Sodium (Fosamax) 70 mg PO ACBREAKFAST [facility] Alprazolam (Xanax) 0.25 mg PO BEDTIME PRN PRN Reason: Anxiety Methylprednisolone Sodium Succinate (Solu-Medrol) 125 mg IVPUSH ONETIME ONE Stop: 02/13/19 15:15 Last Admin: 02/13/19 15:32 Dose: 125 mg Methylprednisolone Sodium Succinate (Solu-Medrol) 80 mg IVPUSH DAILY [facility] Last Admin: 02/14/19 08:07 Dose: 80 mg Mirtazapine (Remeron) 30 mg PO BEDTIME [facility] Prednisone (Prednisone) 40 mg PO WITHBREAKFAST [facility] Last Admin: 02/14/19 11:54 Dose: Not Given - Exam Quality Assessment: Supplemental Oxygen (1 liter at rest), DVT Prophylaxis General: Alert, Oriented, No Acute Distress Lungs: Decreased Breath Sounds (bases), Wheezing (left sided anterior inspiratory faint wheeze) Cardiovascular: Regular Rate, Regular Rhythm, No Murmurs GI/Abdominal Exam: Soft, Non-Tender Peripheral Pulses: 3+: Radial (L), Radial (R) Skin: Warm, Dry Psy/Mental Status: Labile Mood, Depressed (dying ) - Problem List Review Problem List Initiated/Reviewed/Updated: Yes - My Orders Last 24 Hours: My Active Orders 02/14/19 10:17 Oxygen Therapy Adult [Oxygen Therapy, ED] [] ASDIRECTED 02/14/19 10:23 Incentive Spirometry [RT Incentive Spirometry] [] Q2HWA 02/14/19 10:30 Enoxaparin [Lovenox] 40 mg SUBCUT Q24H 02/14/19 10:34 RT Peak Flow Measurement [RC] ASDIRECTED 02/14/19 11:00 Albuterol/Ipratropium [DuoNeb 3.0-0.5 MG/3 ML] 3 ml NEB Q6HRRT 02/15/19 08:00 predniSONE 40 mg PO WITHBREAKFAST - Plan Plan:: Progress Note 68 year old female admitted inpatient through the ED yesterday for COPD exacerbation. Patient states she had a productive cough for a week and developed shortness of breath that prevented her from walking across the room to the chair. There is no history of COPD or other chronic lung disease, however patient does have a 24.5 pack year smoking history. She states that she quit in 2016, but does still smoke several times a week. She has a rescue inhaler that she uses up to three times daily, but this provided her with little to no relief. She does not use supplemental oxygen at home, however she has been using oxygen to maintain saturation since EMS arrived. Prehospital course/Pertinent ED Findings: --VS: afebrile, EMS report 89% on room air, NRB mask applied to raise sat 98% on arrival --Labs: No neutrophilia, mild polycythemia, no electrolyte abnormalities, troponin 0.07 --EKG: NSR without ST-T wave changes --Duonebs given times two in the ED and a one time dose of Solu-Medrol 125mg IV x 1, started on antibiotics --Admitted inpatient to Dr. Carmona for COPD exacerbation, duonebs every four hours and PRN, and Solu-Medrol 80mg IV daily Update on rounds this morning. Sitting in bed high [place] no respiratory distress however RT reports decreased oxygen requirements however still needs one liter at rest 89%. Depressed ailing . No overnight calls/concerns. Intensive education requiring medication. Primary Hospital Problems: --COPD exacerbation, improving --Nicotine abuse, stage of change: precontemplation --Weakness --Significant allergies Chronic/Stable Problems: --CAD with stent; H/O OK 2010 continue on aspirin --Dylipidemia --HTN --CKD, stage 3 --Depression/anxiety --Insomnia --Osteopenia --Obesity Disposition/Overall Plan: --Continue inpatient stay --Continue DuoNebs every six hours --Patient not tolerating oral prednisone, will place on Pulmicort --Continue antibiotic, secondary to increased sputum production --RT to titrate oxygen; assess for home oxygen needs; --Peak flow --Pulmonary toileting --Assess oxygen requirements --DVT prophylaxis: Lovenox 40mg SQ every 24 hours --Continue GI stress prophylaxis, secondary to ASA, Duonebs, Bisphosphonate, stress and smoking history: Omeprazole orally --ASCVD 13.1%; H/O OK with stenting, statin intolerant --Initiate low dose zolpidem for insomnia --RT to discuss nicotine replacement therapy with patient --Discontinue telemetry --Up in the halls today with check of oxygen saturation while ambulating Discharge Planning: --Patient will need LABA/LAMA, will work with pharmacy for discharge --Up to date on Pneumococcal --Ongoing tobacco cessation education --Anticipate discharge in the AM with intense education and pharmacological management --ASCVD 13.1%: H/O OK with stenting; statin intolerant; likely [employer] 9 candidate , needs to be followed up on outpatient --Will have pharmacy consult for history of statin use
[2019-02-15] MEDS ORDERED: guaiFENesin/Dextromethorphan 100-10 MG/5 ML Soln 5 ML Cup PO PRN (12:28)
[2019-02-15] MEDS: Enoxaparin 40 MG/0.4 ML Syringe SUBCUT SCH (12:38)
[2019-02-15] MEDS: cefTRIAXone 1 GM Vial IVPUSH SCH (15:18)
[2019-02-15] MEDS: Budesonide 0.5 MG/2 ML Neb Susp NEB SCH (20:58)
[2019-02-15] MEDS ORDERED: Zolpidem 5 MG Tab PO SCH (21:00)
[2019-02-16] MEDS: Albuterol/Ipratropium 3.0-0.5 MG/3 ML Neb Soln NEB SCH ×2 (05:54→11:11)
[2019-02-16] MEDS: Omeprazole 20 MG Cap.CR PO SCH (06:33)
[2019-02-16] MEDS: Budesonide 0.5 MG/2 ML Neb Susp NEB SCH (07:34)
[2019-02-16] MEDS: Aspirin 81 MG Tab.EC PO SCH (08:22)
[2019-02-16] MEDS: Ezetimibe 10 MG Tab PO SCH (08:22)
[2019-02-16] MEDS: Cholecalciferol (Vitamin D3) 25 MCG Tab PO SCH (08:22)
[2019-02-16] MEDS: Magnesium Oxide 500 MG Tab PO SCH (08:22)
[2019-02-16] MEDS: Sertraline 50 MG Tab PO SCH (08:24)
[2019-02-16] MEDS: Cyanocobalamin (Vitamin B12) 500 MCG Tab PO SCH (08:24)
[2019-02-16] MEDS: Metoprolol Tartrate 50 MG Tab PO SCH (08:28)
[2019-02-16] MEDS: Enoxaparin 40 MG/0.4 ML Syringe SUBCUT SCH (11:34)
--- NOTE | 2019-02-17 15:05 | PCM.DCSUM1 ---
Discharge Summary - Hospital Course Diagnosis: Stroke: No - Discharge Data Discharge Date: 02/16/19 Discharge Disposition: DC/Tfer W/I Hosp To Swing 61 Condition: Fair - Referral to Home Health Primary Care Physician: Mariel Beckwith NP - Patient Summary/Data Consults: Consultations 02/16/19 09:02 Consult to Physical Therapy [PT Evaluation and Treatment] [CONS] Routine - Discharge Plan Home Medications: Home Meds Aspirin [Halfprin] 81 mg PO BRK 06/25/15 [History] Cholecalciferol (Vitamin D3) [Vitamin D3] 2,000 units PO DAILY 06/25/15 [History ] Cyanocobalamin (Vitamin B-12) [Vitamin B-12] 2,000 mcg PO DAILY 06/25/15 [ History] ALPRAZolam [Alprazolam] 0.25 mg PO BEDTIME PRN 02/13/19 [History] Albuterol Sulfate [Albuterol Sulfate Hfa] 2 puff INH Q6H PRN 02/13/19 [History] Alendronate Sodium [Fosamax] 70 mg PO ACBREAKFAST 02/13/19 [History] Ezetimibe [Zetia] 10 mg PO DAILY 02/13/19 [History] Magnesium Oxide 500 mg PO DAILY 02/13/19 [History] Metoprolol Tartrate [Lopressor] 50 mg PO BID 02/13/19 [History] Mirtazapine [Remeron] 30 mg PO BEDTIME 02/13/19 [History] Sertraline [Zoloft] 25 mg PO DAILY 02/13/19 [History] Forms: ED Department Discharge Referrals: Mariel Beckwith, [employer] [Primary Care Provider] - - Discharge Summary/Plan Comment DC Time >30 min.: Yes Discharge Summary/Plan Comment: See same-day history and physical for current review of systems and physical exam components Final Diagnosis COPD exacerbation, Nicotine abuse, stage of change: precontemplation Weakness History summary Patient was admitted through the ED COPD exacerbation although she stated she never was diagnosed with COPD. Patient states she had a productive cough for a week prior to admission and developed shortness of breath that prevented her from walking across the room to the chair. There is no history of COPD or other chronic lung disease, however patient does have a 24.5 pack year smoking history. She stated that she quit in 2015, but does still smoke several times a week is a 3-5 cigarettes per day. She has a rescue inhaler of albuterol that she uses up to three times daily, but this provided her with little to no relief. She does not use supplemental oxygen at home. Hospital course Prehospital course/Pertinent ED Findings: --VS: afebrile, EMS report 89% on room air, NRB mask applied to raise sat 98% on arrival --Labs: No neutrophilia, mild polycythemia, no electrolyte abnormalities, troponin 0.07 --EKG: NSR without ST-T wave changes --Duonebs given times two in the ED and a one time dose of Solu-Medrol 125mg IV x 1, started on antibiotics --Admitted inpatient to Dr. Carmona for COPD exacerbation, duonebs every four hours and PRN, and Solu-Medrol 80mg IV daily She was not fully weaned off her oxygen levels and got quite hypoxic upon any ambulation. She was given Rocephin throughout her acute patient's day however this was discontinued the day she was switched to swing bed. Stents of education was provided along with pharmacological consultation regarding the need for long-acting beta agonist and to hold bronchodilators. Smoking cessation counseling was provided. While in the hospital her however he was in hospice. She was divided with DuoNeb nebs every 6 hours schedule, she did not tolerate oral prednisone and she was placed on Pulmicort twice a day. She did not do well on her peak flow spirometry due to coughing spasms. She was placed on Lovenox for DVT prophylaxis. She was placed on PPI therapy due to GI stress secondary to ASA, Duonebs, Bisphosphonate, stress and smoking history. Disposition Placed in swing bed due to hypoxia on ambulation, medication education. Oxygen conservation with physical therapy. - Patient Data Vitals - Most Recent: Last Vital Signs Temp 97.0 F 02/16/19 06:53 Pulse 84 02/16/19 11:10 Resp 20 02/16/19 11:10 BP 103/66 02/16/19 08:28 Pulse Ox 92 L 02/16/19 11:10 Weight - Most Recent: 173 lb 2 oz Med Orders - Current: Current Medications Discontinued Medications Albuterol (Ventolin Hfa) 0 gm INH Q6H PRN PRN Reason: Wheezing Albuterol/Ipratropium (Duoneb 3.0-0.5 Mg/3 Ml) 3 ml NEB ONETIME ONE Stop: 02/13/19 13:37 Last Admin: 02/13/19 13:43 Dose: 3 ml Albuterol/Ipratropium (Duoneb 3.0-0.5 Mg/3 Ml) 3 ml NEB ONETIME ONE Stop: 02/13/19 15:24 Last Admin: 02/13/19 15:32 Dose: 3 ml Albuterol/Ipratropium (Duoneb 3.0-0.5 Mg/3 Ml) 3 ml NEB Q4H [facility] Last Admin: 02/14/19 07:37 Dose: 3 ml Albuterol/Ipratropium (Duoneb 3.0-0.5 Mg/3 Ml) 3 ml NEB Q6HRRT [facility] Last Admin: 02/16/19 11:11 Dose: 3 ml Alendronate Sodium (Fosamax) 70 mg PO ACBREAKFAST [facility] Alprazolam (Xanax) 0.25 mg PO BEDTIME PRN PRN Reason: Anxiety Aspirin (Halfprin) 81 mg PO BRK [facility] Last Admin: 02/16/19 08:22 Dose: 81 mg Atropine Sulfate (Atropine 0.1 Mg/Ml) 0 mg IVPUSH ASDIRECTED PRN PRN Reason: Heart. Budesonide (Pulmicort) 0.5 mg NEB BIDRT [facility] Last Admin: 02/16/19 07:34 Dose: 0.5 mg Ceftriaxone Sodium (Rocephin) 1 gm IVPUSH Q24H [facility] Last Admin: 02/15/19 15:18 Dose: 1 gm Cholecalciferol (Vitamin D3) 50 mcg PO DAILY [facility] Last Admin: 02/16/19 08:22 Dose: 50 mcg Cyanocobalamin (Vitamin B12) 2,000 mcg PO DAILY [facility] Last Admin: 02/16/19 08:24 Dose: 2,000 mcg Ezetimibe (Zetia) 10 mg PO DAILY [facility] Last Admin: 02/16/19 08:22 Dose: 10 mg Enoxaparin Sodium (Lovenox) 40 mg SUBCUT Q24H [facility] Last Admin: 02/16/19 11:34 Dose: 40 mg Epinephrine HCl (Epinephrine 1:10,000) 1 mg IVPUSH ASDIRECTED PRN PRN Reason: Heart. Guaifenesin/Phenylephrine HCl (Robitussin Dm) 10 ml PO Q4H PRN PRN Reason: Cough Last Admin: 02/15/19 12:37 Dose: 10 ml Lidocaine HCl (Xylocaine 2%) 0 mg IVPUSH ASDIRECTED PRN PRN Reason: Heart. Magnesium Oxide (Magnesium Oxide) 500 mg PO DAILY [facility] Last Admin: 02/16/19 08:22 Dose: 500 mg Melatonin (Melatonin) 6 mg PO BEDTIME PRN PRN Reason: Insomnia Last Admin: 02/14/19 20:56 Dose: 6 mg Methylprednisolone Sodium Succinate (Solu-Medrol) 125 mg IVPUSH ONETIME ONE Stop: 02/13/19 15:15 Last Admin: 02/13/19 15:32 Dose: 125 mg Methylprednisolone Sodium Succinate (Solu-Medrol) 80 mg IVPUSH DAILY [facility] Last Admin: 02/14/19 08:07 Dose: 80 mg Metoprolol Tartrate (Lopressor) 50 mg PO BID [facility] Last Admin: 02/16/19 08:28 Dose: 50 mg Mirtazapine (Remeron) 30 mg PO BEDTIME [facility] Nitroglycerin (Nitrostat) 0.4 mg SL ASDIRECTED PRN PRN Reason: Heart. Omeprazole (Omeprazole) 20 mg PO ACBREAKFAST [facility] Last Admin: 02/16/19 06:33 Dose: 20 mg Ondansetron HCl (Zofran) 4 mg IVPUSH Q6H PRN PRN Reason: Nausea/Vomiting Last Admin: 02/14/19 19:48 Dose: 4 mg Prednisone (Prednisone) 40 mg PO WITHBREAKFAST [facility] Last Admin: 02/14/19 11:54 Dose: Not Given Prednisone (Prednisone) 40 mg PO WITHBREAKFAST [facility] Last Admin: 02/15/19 09:27 Dose: Not Given Sertraline HCl (Zoloft) 25 mg PO DAILY [facility] Last Admin: 02/16/19 08:24 Dose: 25 mg Sodium Chloride (Saline Flush) 10 ml FLUSH Q8HR PRN PRN Reason: keep vein open Last Admin: 02/13/19 17:56 Dose: 10 ml Zolpidem Tartrate (Ambien) 5 mg PO BEDTIME [facility] Last Admin: 02/15/19 23:15 Dose: 5 mg
== END 2019-02-16 11:08 | disposition swing bed (61) | DRG 192 ==
LOC: KA.ED 13:20 → KA.MS 15:44
PROVIDERS: ADMIT Family Medicine; ATTEND Family Medicine
DX: J44.1 Chronic obstructive pulmonary disease with (acute) exacerbation (principal); G47.00 Insomnia, unspecified; Z88.6 Allergy status to analgesic agent; F32.9 Major depressive disorder, single episode, unspecified; E86.0 Dehydration; E78.5 Hyperlipidemia, unspecified; I12.9 Hypertensive chronic kidney disease with stage 1 through stage 4 chronic kidney disease, or unspecified chronic kidney disease; N18.3 Chronic kidney disease, stage 3 (moderate); E66.9 Obesity, unspecified; M85.80 Other specified disorders of bone density and structure, unspecified site; I25.10 Atherosclerotic heart disease of native coronary artery without angina pectoris; E78.00 Pure hypercholesterolemia, unspecified; F41.9 Anxiety disorder, unspecified; F17.210 Nicotine dependence, cigarettes, uncomplicated; M81.0 Age-related osteoporosis without current pathological fracture; Z88.1 Allergy status to other antibiotic agents; Z88.5 Allergy status to narcotic agent; Z88.0 Allergy status to penicillin; Z88.8 Allergy status to other drugs, medicaments and biological substances; Z79.82 Long term (current) use of aspirin; Z79.899 Other long term (current) drug therapy; Z68.30 Body mass index [BMI] 30.0-30.9, adult; Z71.6 Tobacco abuse counseling
CPT/HCPCS: 71046; 80053; 82550; 82553; 83880; 84484; 85025; 93005; 94640 ×2; 96374; 99283; 99285; J2930; 36415; 36600; 80048; 82803; 97162-GP; A9270-GY; J0696; J1650; J2405; J7620-GY

== ENCOUNTER 2019-02-16 10:28 | Inpatient (IN) | payer MEDICARE, BC ==
[2019-02-16] MEDS ORDERED: Sodium Chloride 0.9% 10 ML Syringe FLUSH PRN ×2 (11:06)
[2019-02-16] MEDS ORDERED: guaiFENesin/Dextromethorphan 100-10 MG/5 ML Soln 5 ML Cup PO PRN (11:06)
[2019-02-16] MEDS ORDERED: Albuterol 8 GM Inhaler INH PRN (11:06)
[2019-02-16] MEDS ORDERED: Ondansetron 4 MG/2 ML SDV IVPUSH PRN (11:06)
--- NOTE | 2019-02-16 11:20 | PCM.HP.2 ---
H&P History of Present Illness - General Date of Service: 02/16/19 Admit Problem/Dx: Admission Diagnosis/Problem Admission Diagnosis/Problem COPD, Mild chronic obstructive pulmonary disease Source of Information: Patient, Old Records History Limitations: Reports: No Limitations - Related Data Allergies/Adverse Reactions: Allergies Allergy/AdvReac Type Severity Reaction Status Date / Time bacitracin [From Cortisporin] Allergy RED EYES Verified 02/13/19 13:37 bacitracin zinc Allergy RED EYES Verified 02/13/19 13:37 [From Cortisporin] ciprofloxacin Allergy Hives Verified 02/13/19 13:37 codeine Allergy Nausea Verified 02/13/19 13:37 hydrocortisone Allergy RED EYES Verified 02/13/19 13:37 [From Cortisporin] morphine Allergy RUNNY Verified 02/13/19 13:37 NOSE/WATERY EYES neomycin [From Cortisporin] Allergy RED EYES Verified 02/13/19 13:37 neomycin sulfate Allergy RED EYES Verified 02/13/19 13:37 [From Cortisporin] Penicillins Allergy Hives Verified 02/13/19 13:37 phenazopyridine HCl Allergy UNKNOWN Verified 02/13/19 13:37 [From Pyridium] polymyxin B Allergy RED EYES Verified 02/13/19 13:37 [From Cortisporin] polymyxin B sulfate Allergy RED EYES Verified 02/13/19 13:37 [From Cortisporin] prednisone Allergy Hallucinati Verified 02/13/19 15:05 ons [id number]-[id number]-[id number] Reductase Allergy Leg Cramps Verified 02/13/19 15:05 Inhibitor Home Medications: Home Meds Aspirin [Halfprin] 81 mg PO BRK 06/25/15 [History] Cholecalciferol (Vitamin D3) [Vitamin D3] 2,000 units PO DAILY 06/25/15 [History ] Cyanocobalamin (Vitamin B-12) [Vitamin B-12] 2,000 mcg PO DAILY 06/25/15 [ History] ALPRAZolam [Alprazolam] 0.25 mg PO BEDTIME PRN 02/13/19 [History] Albuterol Sulfate [Albuterol Sulfate Hfa] 2 puff INH Q6H PRN 02/13/19 [History] Alendronate Sodium [Fosamax] 70 mg PO ACBREAKFAST 02/13/19 [History] Ezetimibe [Zetia] 10 mg PO DAILY 02/13/19 [History] Magnesium Oxide 500 mg PO DAILY 02/13/19 [History] Metoprolol Tartrate [Lopressor] 50 mg PO BID 02/13/19 [History] Mirtazapine [Remeron] 30 mg PO BEDTIME 02/13/19 [History] Sertraline [Zoloft] 25 mg PO DAILY 02/13/19 [History] Past Medical History HEENT History: Reports: Impaired Vision Cardiovascular History: Reports: High Cholesterol, Hypertension, MO, Stents Respiratory History: Reports: Bronchitis, Recurrent, Pneumonia, Recurrent Gastrointestinal History: Reports: None Genitourinary History: Reports: None [employer] History: Reports: Musculoskeletal History: Reports: Arthritis - Infectious Disease History Infectious Disease History: Reports: Measles - Past Surgical History Head Surgeries/Procedures: Reports: None HEENT Surgical History: Reports: None Cardiovascular Surgical History: Reports: Coronary Artery Stent Respiratory Surgical History: Reports: None GI Surgical History: Reports: Colonoscopy Female Surgical History: Reports: Hysterectomy, Salpingo-Oophorectomy Musculoskeletal Surgical History: Reports: Knee Replacement Social & Family History - Family History Family Medical History: Noncontributory - Caffeine Use Caffeine Use: Reports: Soda, Tea H&P Review of Systems - Review of Systems: Review Of Systems: See Below General: Reports: Malaise, Fatigue. Denies: Fever, Weight Loss HEENT: Reports: No Symptoms Pulmonary: Reports: Shortness of Breath, Wheezing, Sputum. Denies: Cough Cardiovascular: Reports: Dyspnea on Exertion Gastrointestinal: Reports: No Symptoms Genitourinary: Reports: No Symptoms Musculoskeletal: Reports: No Symptoms Skin: Reports: No Symptoms Psychiatric: Reports: Depression ( of spouse while in hospice. ). Denies : Mood Lability, Agitation Neurological: Denies: Confusion Hematologic/Lymphatic: Reports: No Symptoms Immunologic: Reports: No Symptoms Exam - Exam Exam: See Below - Exam Quality Assessment: Supplemental Oxygen, DVT Prophylaxis General: Alert, Oriented, Cooperative. No: Mild Distress HEENT: Hearing Intact, Mucosa Moist & [place], Normal Nasal Septum Neck: Supple Lungs: Wheezing (Slight faint wheezing anterior right upper) Cardiovascular: Regular Rate, Regular Rhythm GI/Abdominal Exam: Soft (Female) Exam: Deferred Back Exam: No: CVA Tenderness (L), CVA Tenderness (R) Extremities: No Pedal Edema Peripheral Pulses: 2+: Radial (R), 3+: Radial (L) Skin: Warm, Dry, Intact Neurological: Cranial Nerves Intact, Reflexes Equal Bilateral Neuro Extensive - Mental Status: Alert, Oriented x3, Normal Mood/Affect, Normal Cognition Neuro Extensive - Motor, Sensory, Reflexes: CN II-XII Intact, Normal Gait, Normal Reflexes Psychiatric: Alert, Labile Mood, Depressed Problem List Initiated/Reviewed/Updated: Yes Orders Last 24hrs: Active Orders 24 hr Category Date Time Status Incentive Spirometry [RT Incentive Spirometry] [RC] Care 02/16/19 11:06 Active Q2HWA Oxygen Therapy Adult [Oxygen Therapy, ED] [RC] Care 02/16/19 11:06 Active ASDIRECTED Oxygen Therapy [RC] PRN Care 02/16/19 11:06 Active RT Aerosol Therapy [RC] ASDIRECTED Care 02/16/19 11:06 Active RT Aerosol Therapy [RC] ASDIRECTED Care 02/16/19 11:06 Active RT Aerosol Therapy [RC] ASDIRECTED Care 02/16/19 11:06 Active RT Peak Flow Measurement [RC] ASDIRECTED Care 02/16/19 11:06 Active RT Post Treatment Assessment [RC] Click to Edit Care 02/16/19 11:06 Active RT Pre-Treatment Assessment [RC] Click to Edit Care 02/16/19 11:06 Active Up With Assistance [RC] ASDIRECTED Care 02/16/19 11:06 Active VTE/DVT Education [RC] PER UNIT ROUTINE Care 02/16/19 11:06 Active Vital Signs [RC] Q4H Care 02/16/19 11:06 Active Consult to Physical Therapy [PT Evaluation and Cons 02/16/19 11:06 Active Treatment] [CONS] Routine Regular Diet [DIET] Diet 02/16/19 Dinner Active Albuterol [Ventolin HFA] Med 02/16/19 11:06 Ordered 0 gm INH Q6H PRN Albuterol/Ipratropium [DuoNeb 3.0-0.5 MG/3 ML] Med 02/16/19 17:00 Ordered 3 ml NEB Q6HRRT Aspirin [Halfprin] Med 02/17/19 08:00 Ordered 81 mg PO BRK Budesonide [Pulmicort] Med 02/16/19 20:00 Ordered 0.5 mg NEB BIDRT Cholecalciferol (Vitamin D3) [Vitamin D3] Med 02/17/19 09:00 Ordered 50 mcg PO DAILY Cyanocobalamin (Vitamin B12) [Vitamin B12] Med 02/17/19 09:00 Ordered 2,000 mcg PO DAILY Dextromethorphan/guaiFENesin [Robitussin DM] Med 02/16/19 11:06 Ordered 10 ml PO Q4H PRN Enoxaparin [Lovenox] Med 02/17/19 10:30 Ordered 40 mg SUBCUT Q24H Ezetimibe [Zetia] Med 02/17/19 09:00 Ordered 10 mg PO DAILY Magnesium Oxide Med 02/17/19 09:00 Ordered 500 mg PO DAILY Melatonin Med 02/16/19 11:06 Ordered 6 mg PO BEDTIME PRN Metoprolol Tartrate [Lopressor] Med 02/16/19 21:00 Ordered 50 mg PO BID Omeprazole Med 02/17/19 07:30 Ordered 20 mg PO ACBREAKFAST Ondansetron [Zofran] Med 02/16/19 11:06 Ordered 4 mg IVPUSH Q6H PRN Sertraline [Zoloft] Med 02/17/19 09:00 Ordered 25 mg PO DAILY Sodium Chloride 0.9% [Saline Flush] Med 02/16/19 11:06 Ordered 10 ml FLUSH Q8HR PRN Sodium Chloride 0.9% [Saline Flush] Med 02/16/19 11:06 Ordered 10 ml FLUSH Q8HR PRN Zolpidem [Ambien] Med 02/16/19 21:00 Ordered 5 mg PO BEDTIME cefTRIAXone [Rocephin] Med 02/16/19 16:00 Ordered 1 gm IVPUSH Q24H Saline Lock Insert [OM.PC] Routine Oth 02/16/19 11:06 Ordered Medication Orders Albuterol (Ventolin Hfa) 0 gm INH Q6H PRN PRN Reason: Wheezing Albuterol/Ipratropium (Duoneb 3.0-0.5 Mg/3 Ml) 3 ml NEB Q6HRRT [facility] Aspirin (Halfprin) 81 mg PO BRK [facility] Budesonide (Pulmicort) 0.5 mg NEB BIDRT [facility] Ceftriaxone Sodium (Rocephin) 1 gm IVPUSH Q24H [facility] Cholecalciferol (Vitamin D3) 50 mcg PO DAILY [facility] Cyanocobalamin (Vitamin B12) 2,000 mcg PO DAILY [facility] Ezetimibe (Zetia) 10 mg PO DAILY [facility] Enoxaparin Sodium (Lovenox) 40 mg SUBCUT Q24H [facility] Guaifenesin/Phenylephrine HCl (Robitussin Dm) 10 ml PO Q4H PRN PRN Reason: Cough Magnesium Oxide (Magnesium Oxide) 500 mg PO DAILY [facility] Melatonin (Melatonin) 6 mg PO BEDTIME PRN PRN Reason: Insomnia Metoprolol Tartrate (Lopressor) 50 mg PO BID [facility] Omeprazole (Omeprazole) 20 mg PO ACBREAKFAST [facility] Ondansetron HCl (Zofran) 4 mg IVPUSH Q6H PRN PRN Reason: Nausea/Vomiting Sertraline HCl (Zoloft) 25 mg PO DAILY [facility] Sodium Chloride (Saline Flush) 10 ml FLUSH Q8HR PRN PRN Reason: keep vein open Sodium Chloride (Saline Flush) 10 ml FLUSH Q8HR PRN PRN Reason: keep vein open Zolpidem Tartrate (Ambien) 5 mg PO BEDTIME [facility] Assessment/Plan Comment:: History of present illness 68 year old female admitted inpatient through the ED yesterday for COPD exacerbation. Patient states she had a productive cough for a week and developed shortness of breath that prevented her from walking across the room to the chair. There is no history of COPD or other chronic lung disease, however patient does have a 24.5 pack year smoking history. She states that she quit in 2016, but does still smoke several times a week. She has a rescue inhaler that she uses up to three times daily, but this provided her with little to no relief. She does not use supplemental oxygen at home, however she has been using oxygen to maintain saturation since EMS arrived. Prehospital course/Pertinent ED Findings: --VS: afebrile, EMS report 89% on room air, NRB mask applied to raise sat 98% on arrival --Labs: No neutrophilia, mild polycythemia, no electrolyte abnormalities, troponin 0.07 --EKG: NSR without ST-T wave changes --Duonebs given times two in the ED and a one time dose of Solu-Medrol 125mg IV x 1, started on antibiotics --Admitted inpatient to Dr. Carmona for COPD exacerbation, duonebs every four hours and PRN, and Solu-Medrol 80mg IV daily Acute care hospital course Went fairly well however ongoing hypoxia especially ambulation. Oxygen was titrated initially from 4 L down to 1-2 L however day of acute discharge patient did have significant hypoxia 74% while ambulating the halls. Recent of her spouse was in hospice complicated her motivation and wellness state. Although doubtful infectious process she did continue to receive Rocephin daily. Elizabeth Campa with the story therapy with ongoing smoking cessation education. Medication education and compliance. __ Primary Hospital Problems: --Respiratory failure/COPD newly diagnosed, new onset. PT --Nicotine abuse, monitor for agitation, education, --Weakness Chronic/Stable Problems: --CAD with stent; H/O [place] 2010 continue on ASA --Dylipidemia --HTN --CKD, stage 3 --Depression/anxiety, monitor closely since recent of her spouse --Insomnia, improved with low-dose Ambien --Osteopenia --Obesity Disposition/Overall Plan: --Placed in SNF here at [facility] for oxygen conservation in aggressive education --DuoNebs to every six hours now, initiate LABA/LAMA in 48 hours, pharmacy consult --Hold off on oral prednisone, continue Pulmicort --Discontinue antibiotics, --RT to titrate oxygen; assess for home oxygen needs; --Peak flow --Pulmonary toileting --Assess oxygen requirements --DVT prophylaxis: Continue with Lovenox until satisfactory ambulation status --GI stress prophylaxis, secondary to ASA, Duonebs, Bisphosphonate, stress and smoking history: Omeprazole orally --ASCVD 13.1%; H/O MO with stenting, statin intolerant Discharge Planning: --Patient will need LABA/LAMA, will work with pharmacy for discharge --Nurses to assess immunization status --Ongoing tobacco cessation education, uses nicotine replacement therapy --Anticipate discharge in the AM with intense education and pharmacological management --ASCVD 13.1%: H/O MO with stenting; statin intolerant; likely [employer]-9 candidate , needs to be followed up on outpatient --Will have pharmacy consult for history of statin use - Mortality Measure Prognosis:: Good
[2019-02-16] MEDS ORDERED: cefTRIAXone 1 GM Vial IVPUSH SCH (16:00)
[2019-02-16] MEDS: Albuterol/Ipratropium 3.0-0.5 MG/3 ML Neb Soln NEB SCH ×2 (16:18→22:09)
[2019-02-16] MEDS: Budesonide 0.5 MG/2 ML Neb Susp NEB SCH (20:04)
[2019-02-16] MEDS: Metoprolol Tartrate 50 MG Tab PO SCH (22:07)
[2019-02-16] MEDS: Zolpidem 5 MG Tab PO SCH (22:08)
[2019-02-17] MEDS: Albuterol/Ipratropium 3.0-0.5 MG/3 ML Neb Soln NEB SCH ×4 (06:00→23:11)
[2019-02-17] MEDS: Budesonide 0.5 MG/2 ML Neb Susp NEB SCH ×2 (07:43→20:06)
[2019-02-17] MEDS: Omeprazole 20 MG Cap.CR PO SCH (07:43)
[2019-02-17] MEDS: Aspirin 81 MG Tab.EC PO SCH (07:44)
[2019-02-17] MEDS: Magnesium Oxide 500 MG Tab PO SCH (08:54)
[2019-02-17] MEDS: Sertraline 50 MG Tab PO SCH (08:55)
[2019-02-17] MEDS: Ezetimibe 10 MG Tab PO SCH (08:55)
[2019-02-17] MEDS: Cholecalciferol (Vitamin D3) 25 MCG Tab PO SCH (08:56)
[2019-02-17] MEDS: Cyanocobalamin (Vitamin B12) 500 MCG Tab PO SCH (08:56)
[2019-02-17] MEDS: Metoprolol Tartrate 50 MG Tab PO SCH ×2 (09:23→20:07)
[2019-02-17] MEDS ORDERED: Indacaterol/Glycopyrrolate 1 EA Cap.W.Dev Kit of 6 IH SCH (10:00)
[2019-02-17] MEDS: Enoxaparin 40 MG/0.4 ML Syringe SUBCUT SCH (11:22)
[2019-02-17] MEDS: Zolpidem 5 MG Tab PO SCH (20:37)
[2019-02-18] MEDS: Albuterol/Ipratropium 3.0-0.5 MG/3 ML Neb Soln NEB SCH ×4 (05:11→23:38)
[2019-02-18] MEDS: Omeprazole 20 MG Cap.CR PO SCH (07:09)
[2019-02-18] MEDS: Budesonide 0.5 MG/2 ML Neb Susp NEB SCH ×2 (07:44→20:59)
[2019-02-18] MEDS: Cholecalciferol (Vitamin D3) 25 MCG Tab PO SCH (08:07)
[2019-02-18] MEDS: Cyanocobalamin (Vitamin B12) 500 MCG Tab PO SCH (08:07)
[2019-02-18] MEDS: Aspirin 81 MG Tab.EC PO SCH (08:08)
[2019-02-18] MEDS: Magnesium Oxide 500 MG Tab PO SCH (08:08)
[2019-02-18] MEDS: Ezetimibe 10 MG Tab PO SCH (08:08)
[2019-02-18] MEDS: Sertraline 50 MG Tab PO SCH (08:08)
[2019-02-18] MEDS: Metoprolol Tartrate 50 MG Tab PO SCH ×2 (09:03→20:59)
[2019-02-18] MEDS ORDERED: Ondansetron 4 MG Tab.DIS PO PRN (09:22)
[2019-02-18] MEDS: Enoxaparin 40 MG/0.4 ML Syringe SUBCUT SCH (10:58)
[2019-02-18] MEDS: Zolpidem 5 MG Tab PO SCH (21:01)
[2019-02-19] MEDS: Albuterol/Ipratropium 3.0-0.5 MG/3 ML Neb Soln NEB SCH ×4 (06:00→23:38)
[2019-02-19] MEDS: Aspirin 81 MG Tab.EC PO SCH (07:39)
[2019-02-19] MEDS: Omeprazole 20 MG Cap.CR PO SCH (07:39)
[2019-02-19] MEDS: Budesonide 0.5 MG/2 ML Neb Susp NEB SCH ×2 (07:39→20:21)
[2019-02-19] MEDS: Cholecalciferol (Vitamin D3) 25 MCG Tab PO SCH (08:05)
[2019-02-19] MEDS: Magnesium Oxide 500 MG Tab PO SCH (08:05)
[2019-02-19] MEDS: Metoprolol Tartrate 50 MG Tab PO SCH ×2 (08:05→20:22)
[2019-02-19] MEDS: Ezetimibe 10 MG Tab PO SCH (08:06)
[2019-02-19] MEDS: Sertraline 50 MG Tab PO SCH (08:06)
[2019-02-19] MEDS: Cyanocobalamin (Vitamin B12) 500 MCG Tab PO SCH (08:06)
[2019-02-19] MEDS: Enoxaparin 40 MG/0.4 ML Syringe SUBCUT SCH (11:07)
[2019-02-19] MEDS: Zolpidem 5 MG Tab PO SCH (20:21)
[2019-02-20] MEDS: Albuterol/Ipratropium 3.0-0.5 MG/3 ML Neb Soln NEB SCH ×4 (04:23→22:27)
[2019-02-20] MEDS: Omeprazole 20 MG Cap.CR PO SCH (07:37)
[2019-02-20] MEDS: Budesonide 0.5 MG/2 ML Neb Susp NEB SCH ×2 (08:26→20:34)
[2019-02-20] MEDS: Cyanocobalamin (Vitamin B12) 500 MCG Tab PO SCH (08:26)
[2019-02-20] MEDS: Ezetimibe 10 MG Tab PO SCH (08:26)
[2019-02-20] MEDS: Magnesium Oxide 500 MG Tab PO SCH (08:26)
[2019-02-20] MEDS: Aspirin 81 MG Tab.EC PO SCH (08:26)
[2019-02-20] MEDS: Cholecalciferol (Vitamin D3) 25 MCG Tab PO SCH (08:26)
[2019-02-20] MEDS: Sertraline 50 MG Tab PO SCH (08:27)
[2019-02-20] MEDS: Metoprolol Tartrate 50 MG Tab PO SCH ×2 (08:35→20:34)
[2019-02-20] MEDS: Enoxaparin 40 MG/0.4 ML Syringe SUBCUT SCH (10:35)
[2019-02-21] MEDS: Albuterol/Ipratropium 3.0-0.5 MG/3 ML Neb Soln NEB SCH ×4 (05:56→23:27)
[2019-02-21] MEDS: Omeprazole 20 MG Cap.CR PO SCH (07:38)
[2019-02-21] MEDS: Budesonide 0.5 MG/2 ML Neb Susp NEB SCH ×2 (07:42→20:29)
[2019-02-21] MEDS: Aspirin 81 MG Tab.EC PO SCH (08:17)
[2019-02-21] MEDS: Ezetimibe 10 MG Tab PO SCH (08:17)
[2019-02-21] MEDS: Cholecalciferol (Vitamin D3) 25 MCG Tab PO SCH (08:18)
[2019-02-21] MEDS: Magnesium Oxide 500 MG Tab PO SCH (08:18)
[2019-02-21] MEDS: Metoprolol Tartrate 50 MG Tab PO SCH ×2 (08:18→20:25)
[2019-02-21] MEDS: Cyanocobalamin (Vitamin B12) 500 MCG Tab PO SCH (08:18)
[2019-02-21] MEDS: Sertraline 50 MG Tab PO SCH (08:19)
[2019-02-21] MEDS: Enoxaparin 40 MG/0.4 ML Syringe SUBCUT SCH (10:19)
[2019-02-22] MEDS: Albuterol/Ipratropium 3.0-0.5 MG/3 ML Neb Soln NEB SCH ×4 (05:58→23:23)
[2019-02-22] MEDS: Omeprazole 20 MG Cap.CR PO SCH (06:34)
[2019-02-22] MEDS: Budesonide 0.5 MG/2 ML Neb Susp NEB SCH ×2 (07:35→20:01)
[2019-02-22] MEDS: Magnesium Oxide 500 MG Tab PO SCH (09:03)
[2019-02-22] MEDS: Ezetimibe 10 MG Tab PO SCH (09:03)
[2019-02-22] MEDS: Cyanocobalamin (Vitamin B12) 500 MCG Tab PO SCH (09:03)
[2019-02-22] MEDS: Cholecalciferol (Vitamin D3) 25 MCG Tab PO SCH (09:04)
[2019-02-22] MEDS: Metoprolol Tartrate 50 MG Tab PO SCH ×2 (09:05→20:01)
[2019-02-22] MEDS: Sertraline 50 MG Tab PO SCH (09:05)
[2019-02-22] MEDS: Aspirin 81 MG Tab.EC PO SCH (09:05)
[2019-02-22] MEDS: Enoxaparin 40 MG/0.4 ML Syringe SUBCUT SCH (09:52)
[2019-02-23] MEDS: Albuterol/Ipratropium 3.0-0.5 MG/3 ML Neb Soln NEB SCH (06:00)
[2019-02-23] MEDS: Omeprazole 20 MG Cap.CR PO SCH (07:32)
[2019-02-23] MEDS: Budesonide 0.5 MG/2 ML Neb Susp NEB SCH ×2 (07:35→20:55)
[2019-02-23] MEDS: Aspirin 81 MG Tab.EC PO SCH (07:51)
[2019-02-23] MEDS: Magnesium Oxide 500 MG Tab PO SCH (08:38)
[2019-02-23] MEDS: Cholecalciferol (Vitamin D3) 25 MCG Tab PO SCH (08:38)
[2019-02-23] MEDS: Cyanocobalamin (Vitamin B12) 500 MCG Tab PO SCH (08:38)
[2019-02-23] MEDS: Metoprolol Tartrate 50 MG Tab PO SCH ×2 (08:39→20:55)
[2019-02-23] MEDS: Sertraline 50 MG Tab PO SCH (08:39)
[2019-02-23] MEDS: Ezetimibe 10 MG Tab PO SCH (08:39)
[2019-02-23] MEDS: Enoxaparin 40 MG/0.4 ML Syringe SUBCUT SCH (10:39)
[2019-02-23] MEDS ORDERED: Albuterol/Ipratropium 3.0-0.5 MG/3 ML Neb Soln NEB PRN (10:44)
--- NOTE | 2019-02-23 10:47 | PCM.SN ---
- Free Text/Narrative Note: Patient is improving in her respiratory status. It appears outpatient LABA/LAMA will be cost-prohibitive for her. We'll change her to Brovana and Pulmicort nebs , and change duo nebs to PRN status.
[2019-02-23] MEDS ORDERED: Budesonide 0.5 MG/2 ML Neb Susp NEB SCH (20:00)
[2019-02-23] MEDS: Arformoterol 15 MCG/2 ML Neb Soln INH SCH (20:09)
[2019-02-24] MEDS: Omeprazole 20 MG Cap.CR PO SCH (07:43)
[2019-02-24] MEDS: Arformoterol 15 MCG/2 ML Neb Soln INH SCH ×2 (07:44→22:05)
[2019-02-24] MEDS: Sertraline 50 MG Tab PO SCH (08:56)
[2019-02-24] MEDS: Cholecalciferol (Vitamin D3) 25 MCG Tab PO SCH (08:57)
[2019-02-24] MEDS: Cyanocobalamin (Vitamin B12) 500 MCG Tab PO SCH (08:57)
[2019-02-24] MEDS: Magnesium Oxide 500 MG Tab PO SCH (08:57)
[2019-02-24] MEDS: Aspirin 81 MG Tab.EC PO SCH (08:57)
[2019-02-24] MEDS: Ezetimibe 10 MG Tab PO SCH (08:57)
[2019-02-24] MEDS: Budesonide 0.5 MG/2 ML Neb Susp NEB SCH ×2 (08:58→21:07)
[2019-02-24] MEDS: Metoprolol Tartrate 50 MG Tab PO SCH ×2 (09:00→21:07)
[2019-02-25] MEDS: Omeprazole 20 MG Cap.CR PO SCH (08:05)
[2019-02-25] MEDS: Cyanocobalamin (Vitamin B12) 500 MCG Tab PO SCH (08:37)
[2019-02-25] MEDS: Arformoterol 15 MCG/2 ML Neb Soln INH SCH ×2 (08:37→20:50)
[2019-02-25] MEDS: Aspirin 81 MG Tab.EC PO SCH (08:37)
[2019-02-25] MEDS: Budesonide 0.5 MG/2 ML Neb Susp NEB SCH ×2 (08:37→21:35)
[2019-02-25] MEDS: Cholecalciferol (Vitamin D3) 25 MCG Tab PO SCH (08:37)
[2019-02-25] MEDS: Magnesium Oxide 500 MG Tab PO SCH (08:37)
[2019-02-25] MEDS: Metoprolol Tartrate 50 MG Tab PO SCH ×2 (08:37→20:49)
[2019-02-25] MEDS: Ezetimibe 10 MG Tab PO SCH (08:38)
[2019-02-25] MEDS: Sertraline 50 MG Tab PO SCH (08:38)
[2019-02-26] MEDS: Omeprazole 20 MG Cap.CR PO SCH (06:41)
[2019-02-26] MEDS: Aspirin 81 MG Tab.EC PO SCH (08:30)
[2019-02-26] MEDS: Budesonide 0.5 MG/2 ML Neb Susp NEB SCH ×2 (08:30→20:48)
[2019-02-26] MEDS: Arformoterol 15 MCG/2 ML Neb Soln INH SCH ×2 (08:30→20:38)
[2019-02-26] MEDS: Metoprolol Tartrate 50 MG Tab PO SCH ×2 (08:30→20:38)
[2019-02-26] MEDS: Magnesium Oxide 500 MG Tab PO SCH (08:30)
[2019-02-26] MEDS: Cholecalciferol (Vitamin D3) 25 MCG Tab PO SCH (08:30)
[2019-02-26] MEDS: Sertraline 50 MG Tab PO SCH (08:30)
[2019-02-26] MEDS: Ezetimibe 10 MG Tab PO SCH (08:30)
[2019-02-26] MEDS: Cyanocobalamin (Vitamin B12) 500 MCG Tab PO SCH (08:30)
[2019-02-26] MEDS ORDERED: Acetaminophen 325 MG Tab PO PRN (16:33)
[2019-02-27] MEDS: Aspirin 81 MG Tab.EC PO SCH (07:24)
[2019-02-27] MEDS: Omeprazole 20 MG Cap.CR PO SCH (07:24)
[2019-02-27] MEDS: Arformoterol 15 MCG/2 ML Neb Soln INH SCH ×2 (07:28→19:39)
[2019-02-27] MEDS: Budesonide 0.5 MG/2 ML Neb Susp NEB SCH ×3 (07:50→20:28)
[2019-02-27] MEDS: Cholecalciferol (Vitamin D3) 25 MCG Tab PO SCH (08:11)
[2019-02-27] MEDS: Sertraline 50 MG Tab PO SCH (08:11)
[2019-02-27] MEDS: Cyanocobalamin (Vitamin B12) 500 MCG Tab PO SCH (08:11)
[2019-02-27] MEDS: Metoprolol Tartrate 50 MG Tab PO SCH ×2 (08:12→20:28)
[2019-02-27] MEDS: Ezetimibe 10 MG Tab PO SCH (08:12)
[2019-02-27] MEDS: Magnesium Oxide 500 MG Tab PO SCH (08:12)
[2019-02-28] MEDS: Arformoterol 15 MCG/2 ML Neb Soln INH SCH ×2 (07:35→19:28)
[2019-02-28] MEDS: Budesonide 0.5 MG/2 ML Neb Susp NEB SCH ×2 (07:55→19:46)
[2019-02-28] MEDS: Omeprazole 20 MG Cap.CR PO SCH (08:00)
[2019-02-28] MEDS: Magnesium Oxide 500 MG Tab PO SCH (08:12)
[2019-02-28] MEDS: Ezetimibe 10 MG Tab PO SCH (08:12)
[2019-02-28] MEDS: Aspirin 81 MG Tab.EC PO SCH (08:12)
[2019-02-28] MEDS: Cholecalciferol (Vitamin D3) 25 MCG Tab PO SCH (08:12)
[2019-02-28] MEDS: Cyanocobalamin (Vitamin B12) 500 MCG Tab PO SCH (08:12)
[2019-02-28] MEDS: Sertraline 50 MG Tab PO SCH (08:12)
[2019-02-28] MEDS: Metoprolol Tartrate 50 MG Tab PO SCH ×2 (08:13→20:29)
--- NOTE | 2019-02-28 11:42 | PCM.PN ---
- General Info Date of Service: 02/28/19 Functional Status: Reports: Pain Controlled, Tolerating Diet, Ambulating, Urinating, Incentive Spirometry. Denies: New Symptoms - Review of Systems General: Reports: No Symptoms HEENT: Reports: No Symptoms Pulmonary: Reports: Sputum, Wheezing, Other (SOB upon ambulation). Denies: Cough Gastrointestinal: Reports: No Symptoms Genitourinary: Reports: No Symptoms Musculoskeletal: Reports: No Symptoms Skin: Reports: No Symptoms Neurological: Reports: No Symptoms Psychiatric: Reports: Depression - Patient Data Vitals - Most Recent: Last Vital Signs Temp 97.6 F 02/28/19 06:45 Pulse 64 02/28/19 08:13 Resp 18 02/28/19 06:45 BP 113/56 L 02/28/19 08:13 Pulse Ox 92 L 02/28/19 07:55 Weight - Most Recent: 174 lb 9 oz I&O - Last 24 Hours: Intake & Output 02/27/19 02/28/19 02/28/19 22:59 06:59 14:59 Intake Total 470 100 Balance 470 100 Med Orders - Current: Current Medications Acetaminophen (Tylenol) 650 mg PO Q6H PRN PRN Reason: Pain Last Admin: 02/26/19 16:52 Dose: 650 mg Albuterol (Ventolin Hfa) 0 gm INH Q6H PRN PRN Reason: Wheezing Albuterol/Ipratropium (Duoneb 3.0-0.5 Mg/3 Ml) 3 ml NEB Q6HRRT PRN PRN Reason: sob Arformoterol Tartrate (Brovana) 15 mcg INH BIDRT [facility] Last Admin: 02/28/19 07:35 Dose: 15 mcg Aspirin (Halfprin) 81 mg PO BRK [facility] Last Admin: 02/28/19 08:12 Dose: 81 mg Budesonide (Pulmicort) 0.5 mg NEB BIDRT [facility] Last Admin: 02/28/19 07:55 Dose: 0.5 mg Cholecalciferol (Vitamin D3) 50 mcg PO DAILY [facility] Last Admin: 02/28/19 08:12 Dose: 50 mcg Cyanocobalamin (Vitamin B12) 2,000 mcg PO DAILY [facility] Last Admin: 02/28/19 08:12 Dose: 2,000 mcg Ezetimibe (Zetia) 10 mg PO DAILY [facility] Last Admin: 02/28/19 08:12 Dose: 10 mg Guaifenesin/Phenylephrine HCl (Robitussin Dm) 10 ml PO Q4H PRN PRN Reason: Cough Last Admin: 02/16/19 16:18 Dose: 10 ml Magnesium Oxide (Magnesium Oxide) 500 mg PO DAILY [facility] Last Admin: 02/28/19 08:12 Dose: 500 mg Melatonin (Melatonin) 6 mg PO BEDTIME PRN PRN Reason: Insomnia Metoprolol Tartrate (Lopressor) 50 mg PO BID [facility] Last Admin: 02/28/19 08:13 Dose: 50 mg Omeprazole (Omeprazole) 20 mg PO ACBREAKFAST [facility] Last Admin: 02/28/19 08:00 Dose: 20 mg Ondansetron HCl (Zofran Odt) 4 mg PO Q6H PRN PRN Reason: Nausea/Vomiting Sertraline HCl (Zoloft) 25 mg PO DAILY [facility] Last Admin: 02/28/19 08:12 Dose: 25 mg Discontinued Medications Albuterol/Ipratropium (Duoneb 3.0-0.5 Mg/3 Ml) 3 ml NEB Q6HRRT [facility] Last Admin: 02/23/19 06:00 Dose: 3 ml Budesonide (Pulmicort) 0.5 mg NEB BIDRT [facility] Ceftriaxone Sodium (Rocephin) 1 gm IVPUSH Q24H [facility] Last Admin: 02/16/19 15:59 Dose: 1 gm Enoxaparin Sodium (Lovenox) 40 mg SUBCUT Q24H [facility] Last Admin: 02/23/19 10:39 Dose: 40 mg Ondansetron HCl (Zofran) 4 mg IVPUSH Q6H PRN PRN Reason: Nausea/Vomiting Sodium Chloride (Saline Flush) 10 ml FLUSH Q8HR PRN PRN Reason: keep vein open Zolpidem Tartrate (Ambien) 5 mg PO BEDTIME [facility] Last Admin: 02/19/19 20:21 Dose: Not Given - Exam Quality Assessment: Supplemental Oxygen (Requiring 2 L 02 NC, at rest, due to Sa02 87% ) General: Alert, Oriented Neck: Supple Lungs: Rhonchi. No: Crackles Cardiovascular: Regular Rate, Regular Rhythm GI/Abdominal Exam: Soft (Female) Exam: Deferred Back Exam: No: CVA Tenderness (L), CVA Tenderness (R) Extremities: No Pedal Edema Psy/Mental Status: Alert, Anxious (anxious regarding her home oxygen requirements, needs lots of positive and reinforcement) - Problem List Review Problem List Initiated/Reviewed/Updated: Yes - Plan Plan:: History of present illness 68 year old female admitted inpatient through the ED yesterday for COPD exacerbation. Patient states she had a productive cough for a week and developed shortness of breath that prevented her from walking across the room to the chair. There is no history of COPD or other chronic lung disease, however patient does have a 24.5 pack year smoking history. She states that she quit in 2016, but does still smoke several times a week. She has a rescue inhaler that she uses up to three times daily, but this provided her with little to no relief. She does not use supplemental oxygen at home, however she has been using oxygen to maintain saturation since EMS arrived. Prehospital course/Pertinent ED Findings: --VS: afebrile, EMS report 89% on room air, NRB mask applied to raise sat 98% on arrival --Labs: No neutrophilia, mild polycythemia, no electrolyte abnormalities, troponin 0.07 --EKG: NSR without ST-T wave changes --Duonebs given times two in the ED and a one time dose of Solu-Medrol 125mg IV x 1, started on antibiotics --Admitted inpatient to Dr. Carmona for COPD exacerbation, duonebs every four hours and PRN, and Solu-Medrol 80mg IV daily Acute care hospital course Went fairly well however ongoing hypoxia especially ambulation. Oxygen was titrated initially from 4 L down to 1-2 L however day of acute discharge patient did have significant hypoxia 74% while ambulating the halls. Recent of her spouse was in hospice complicated her motivation and wellness state. Although doubtful infectious process she did continue to receive Rocephin daily. Elizabeth Campa with the story therapy with ongoing smoking cessation education. Medication education and compliance. __ Primary Hospital Problems: --Respiratory failure/COPD newly diagnosed, new onset. PT --Nicotine abuse, monitor for agitation, education, --Weakness Chronic/Stable Problems: --CAD with stent; H/O CO 2010 continue on ASA --Dylipidemia --HTN --CKD, stage 3 --Depression/anxiety, monitor closely since recent of her spouse --Insomnia, improved with low-dose Ambien --Osteopenia --Obesity Disposition/Overall Plan: --Placed in SNF here at [facility] for oxygen conservation in aggressive education --DuoNebs as needed, started on Brovana and Pulmicortnebs as inhaler costly for her. --Hold off on oral prednisone, continue Pulmicort --Pulmonary toileting --DVT prophylaxis: DCd Lovenox since ambulation status good. --GI stress prophylaxis, secondary to ASA, Duonebs, Bisphosphonate, stress and smoking history: Omeprazole orally --ASCVD 13.1%; H/O CO with stenting, statin intolerant Discharge Planning: --Nursing can DC patient on March 03 to [facility], PT/OT with home oxygen. -- 30-day supply of Brovana and Pulmicort sent to [employer] through [employer] [facility]. --Subsequant refills of Brovana and Pulmicort sent to [facility] through [employer] [facility] --Neb machine sent [employer] through [employer] [facility]. --Oxygen with supplies sent to [facility] through [employer] [facility], they will set her up at home day of Discharge. --Newly added Bupropion hydrochloride for smoking cessation, sent to [facility] [employer] [facility] --Dr Negin Andrew will need to provide simple note DAY OF DISCHARGE stating "O2 sat 87% on room air, while awake, at rest" This is a [id number] encounter for home health, physical therapy occupational therapy and nursing. Please provide health teaching for medication management of her new medications of Brovana and Pulmicort and bupropion with the use of oxygen and supplies and how to effectively manage her oxygen level. Educate patient on how oxygen is classified as an oxidizer and the hazards of smoking while on Oxygen. Relevant in-home safety assessment and instruction along with physical therapy to provide for her strength and endurance since newly diagnosed COPD. Is considered homebound due to her decreased strength and endurance due to her oxygen requirements along with fatigue. As newly required oxygen requirements and experiences shortness of breath with minimal activities. Please provide education regarding the disease of COPD, its progressive nature and the need for ongoing smoking cessation
[2019-02-28] MEDS: Melatonin 3 MG Tab PO PRN (23:56)
[2019-03-01] MEDS: Omeprazole 20 MG Cap.CR PO SCH (06:41)
[2019-03-01] MEDS: Arformoterol 15 MCG/2 ML Neb Soln INH SCH ×2 (08:48→21:20)
[2019-03-01] MEDS: Sertraline 50 MG Tab PO SCH (08:51)
[2019-03-01] MEDS: Magnesium Oxide 500 MG Tab PO SCH (08:51)
[2019-03-01] MEDS: Ezetimibe 10 MG Tab PO SCH (08:51)
[2019-03-01] MEDS: Cyanocobalamin (Vitamin B12) 500 MCG Tab PO SCH (08:51)
[2019-03-01] MEDS: Aspirin 81 MG Tab.EC PO SCH (08:51)
[2019-03-01] MEDS: Cholecalciferol (Vitamin D3) 25 MCG Tab PO SCH (08:51)
[2019-03-01] MEDS: Budesonide 0.5 MG/2 ML Neb Susp NEB SCH ×2 (08:53→21:50)
[2019-03-01] MEDS: Metoprolol Tartrate 50 MG Tab PO SCH ×2 (08:53→21:50)
[2019-03-01] MEDS: Melatonin 3 MG Tab PO PRN (23:20)
[2019-03-02] MEDS: Omeprazole 20 MG Cap.CR PO SCH (07:45)
[2019-03-02] MEDS: Aspirin 81 MG Tab.EC PO SCH (07:45)
[2019-03-02] MEDS: Budesonide 0.5 MG/2 ML Neb Susp NEB SCH ×2 (07:45→21:05)
[2019-03-02] MEDS: Arformoterol 15 MCG/2 ML Neb Soln INH SCH ×2 (07:55→20:55)
[2019-03-02] MEDS: Cholecalciferol (Vitamin D3) 25 MCG Tab PO SCH (08:57)
[2019-03-02] MEDS: Sertraline 50 MG Tab PO SCH (08:57)
[2019-03-02] MEDS: Cyanocobalamin (Vitamin B12) 500 MCG Tab PO SCH (08:57)
[2019-03-02] MEDS: Magnesium Oxide 500 MG Tab PO SCH (08:58)
[2019-03-02] MEDS: Ezetimibe 10 MG Tab PO SCH (08:58)
[2019-03-02] MEDS: Metoprolol Tartrate 50 MG Tab PO SCH ×2 (08:58→21:05)
[2019-03-02] MEDS: Melatonin 3 MG Tab PO PRN (23:20)
[2019-03-03] MEDS: Aspirin 81 MG Tab.EC PO SCH (07:56)
[2019-03-03] MEDS: Arformoterol 15 MCG/2 ML Neb Soln INH SCH (07:57)
[2019-03-03] MEDS: Omeprazole 20 MG Cap.CR PO SCH (07:57)
[2019-03-03] MEDS: Budesonide 0.5 MG/2 ML Neb Susp NEB SCH (08:41)
[2019-03-03] MEDS: Cholecalciferol (Vitamin D3) 25 MCG Tab PO SCH (08:42)
[2019-03-03] MEDS: Cyanocobalamin (Vitamin B12) 500 MCG Tab PO SCH (08:42)
[2019-03-03] MEDS: Magnesium Oxide 500 MG Tab PO SCH (08:42)
[2019-03-03] MEDS: Ezetimibe 10 MG Tab PO SCH (08:42)
[2019-03-03] MEDS: Metoprolol Tartrate 50 MG Tab PO SCH (08:43)
[2019-03-03] MEDS: Sertraline 50 MG Tab PO SCH (08:43)
--- NOTE | 2019-03-03 10:13 | PCM.DCSUM1 ---
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 Patient had a productive cough for a week and developed shortness of breath that prevented her from walking across the room to the chair. There is no history of COPD or other chronic lung disease, however patient does have a 24.5 pack year smoking history. She states that she quit in 2016, but does still smoke several times a week. She has a rescue inhaler that she uses up to three times daily, but this provided her with little to no relief. She does not use supplemental oxygen at home, however she had been using oxygen to maintain saturation since EMS arrived. Prehospital course/Pertinent ED findings: VS: afebrile, EMS report 89% on room air, NRB mask applied to raise sat 98% on arrival Labs: No neutrophilia, mild polycythemia, no electrolyte abnormalities, troponin 0.07 EKG: NSR without ST-T wave changes Duonebs given times two in the ED and a one time dose of Solu-Medrol 125mg IV x 1, started on antibiotics Admitted inpatient to Dr. Carmona for COPD exacerbation, DuoNebs every four hours and PRN, and Solu-Medrol 80mg IV daily Acute care hospital course: Went fairly well, however ongoing hypoxia noted especially with ambulation. Oxygen was titrated initially from 4 L down to 1-2 L however on the day of acute discharge, patient did have significant hypoxia to 74% while ambulating the halls. Recent of her spouse who was in hospice complicated her motivation and wellness state. Although doubtful infectious process she did continue to receive Rocephin daily. Swing bed hospital course: Progressed well with physical therapy and oxygen titration, but she continues to need baseline oxygen, for which qualification paperwork completed and extensive education provided. On day of discharge (03/03/19), O2 sat 87% on room air, while awake, at rest. Need for home health services also noted and were coordinated. Discharge and follow-up recommendations: - Discharge to home, with home health, PT, and OT; see [id number] certification previously completed - Follow-up with PCP ZACARIAS Sheth-ELLIE in 1 week - 1st 30-day supply of Brovana and Pulmicort sent to [employer] and subsequant refills of Brovana and Pulmicort sent to [facility] - Nebulizer machine sent [employer] - DME oxygen and supplies sent to [facility], who is scheduled set her up at home day of discharge - Newly added bupropion hydrochloride for smoking cessation, sent to [facility] - Continue other prior home medications as verified on outpatient Epic list Diagnosis: Stroke: No - Discharge Data Discharge Date: 03/03/19 Discharge Disposition: Home, W Home Health Agency 06 Condition: Good - Referral to Home Health Date of Face to Face Encounter: 02/28/19 Reason for Homebound Status: COPD with shortness of breath with minimal activities or at rest Primary Care Physician: Mariel Beckwith NP Skilled Need: Please provide health teaching for medication management of her new medications of Brovana and Pulmicort and bupropion with the use of oxygen and supplies and how to effectively manage her oxygen level. Educate patient on how oxygen is classified as an oxidizer and the hazards of smoking while on Oxygen. Relevant in-home safety assessment and instruction along with physical therapy to provide for her strength and endurance since newly diagnosed COPD. Is considered homebound due to her decreased strength and endurance due to her oxygen requirements along with fatigue. As newly required oxygen requirements and experiences shortness of breath with minimal activities. Please provide education regarding the disease of COPD, its progressive nature and the need for ongoing smoking cessation - Patient Summary/Data Consults: Consultations 02/16/19 11:06 Consult to Physical Therapy [PT Evaluation and Treatment] [CONS] Routine - Patient Instructions Diet: Usual Diet as Tolerated Activity: As Tolerated, Cough & Deep Breathe Driving: Do Not Drive Showering/Bathing: May Shower Notify Provider of: Fever Other/Special Instructions: Report any worsening shortness of breath, wheezing or cough. --Nursing can DC patient on March 03 to [facility], PT/ OT with home oxygen. --1st 30-day supply of Brovana and Pulmicort sent to [facility] through [facility]. --Subsequant refills of Brovana and Pulmicort sent to [facility] through [facility]. --Neb machine sent [facility] [employer] through [facility]. --Oxygen with supplies sent to [facility] through [facility], they will set her up at home day of Discharge. --Newly added Bupropion hydrochloride for smoking cessation, [facility]charge Plan *PRESCRIPTION DRUG MONITORING PROGRAM REVIEWED*: Not Applicable *COPY OF PRESCRIPTION DRUG MONITORING REPORT IN PATIENT KWESI: Not Applicable Prescriptions/Med Rec: Albuterol/Ipratropium [DuoNeb 3.0-0.5 MG/3 ML] 3 ml NEB Q4H PRN #30 neb PRN Reason: sob Home Medications: Home Meds Aspirin [Halfprin] 81 mg PO BRK 06/25/15 [History] Cholecalciferol (Vitamin D3) [Vitamin D3] 2,000 units PO DAILY 06/25/15 [History ] Cyanocobalamin (Vitamin B-12) [Vitamin B-12] 2,000 mcg PO DAILY 06/25/15 [ History] Albuterol Sulfate [Albuterol Sulfate Hfa] 2 puff INH Q6H PRN 02/13/19 [History] Ezetimibe [Zetia] 10 mg PO DAILY 02/13/19 [History] Magnesium Oxide 500 mg PO DAILY 02/13/19 [History] Metoprolol Tartrate [Lopressor] 50 mg PO BID 02/13/19 [History] Sertraline [Zoloft] 25 mg PO DAILY 02/13/19 [History] Budesonide [Pulmicort] 0.25 mg INH BID 02/17/19 [History] Omeprazole 20 mg PO ACBREAKFAST 02/17/19 [History] Albuterol/Ipratropium [DuoNeb 3.0-0.5 MG/3 ML] 3 ml NEB Q4H PRN #30 neb [Rx] Arformoterol [Brovana] 15 mcg INH BIDRT neb 03/03/19 [Rx] Referrals: [facility] [Outside] Mariel Beckwith, [employer] [Primary Care Provider] - (in about 2 weeks ) - Discharge Summary/Plan Comment DC Time >30 min.: Yes - General Info Date of Service: 03/03/19 Subjective Update: Mrs. Persaud reports feeling well and being ready to discharge to home. She feels comfortable with medication regimen and home oxygen use. Denies any concerns. Denies fever, chills, shortness of breath, chest pain, abdominal pain , or appetite change. - Patient Data Vitals - Most Recent: Last Vital Signs Temp 37.1 C 03/03/19 06:53 Pulse 71 03/03/19 08:43 Resp 16 03/03/19 06:53 BP 92/61 03/03/19 08:43 Pulse Ox 87 L 03/03/19 09:15 Weight - Most Recent: 80.541 kg I&O - Last 24 hours: Intake & Output 03/02/19 03/03/19 03/03/19 22:59 06:59 14:59 Intake Total 500 100 Balance 500 100 Med Orders - Current: Current Medications Acetaminophen (Tylenol) 650 mg PO Q6H PRN PRN Reason: Pain Last Admin: 02/26/19 16:52 Dose: 650 mg Albuterol (Ventolin Hfa) 0 gm INH Q6H PRN PRN Reason: Wheezing Albuterol/Ipratropium (Duoneb 3.0-0.5 Mg/3 Ml) 3 ml NEB Q6HRRT PRN PRN Reason: sob Arformoterol Tartrate (Brovana) 15 mcg INH BIDRT [facility] Last Admin: 03/03/19 07:57 Dose: 15 mcg Aspirin (Halfprin) 81 mg PO BRK [facility] Last Admin: 03/03/19 07:56 Dose: 81 mg Budesonide (Pulmicort) 0.5 mg NEB BIDRT [facility] Last Admin: 03/03/19 08:41 Dose: 0.5 mg Cholecalciferol (Vitamin D3) 50 mcg PO DAILY [facility] Last Admin: 03/03/19 08:42 Dose: 50 mcg Cyanocobalamin (Vitamin B12) 2,000 mcg PO DAILY [facility] Last Admin: 03/03/19 08:42 Dose: 2,000 mcg Ezetimibe (Zetia) 10 mg PO DAILY [facility] Last Admin: 03/03/19 08:42 Dose: 10 mg Guaifenesin/Phenylephrine HCl (Robitussin Dm) 10 ml PO Q4H PRN PRN Reason: Cough Last Admin: 02/16/19 16:18 Dose: 10 ml Magnesium Oxide (Magnesium Oxide) 500 mg PO DAILY [facility] Last Admin: 03/03/19 08:42 Dose: 500 mg Melatonin (Melatonin) 6 mg PO BEDTIME PRN PRN Reason: Insomnia Last Admin: 03/02/19 23:20 Dose: 6 mg Metoprolol Tartrate (Lopressor) 50 mg PO BID [facility] Last Admin: 03/03/19 08:43 Dose: 50 mg Omeprazole (Omeprazole) 20 mg PO ACBREAKFAST [facility] Last Admin: 03/03/19 07:57 Dose: 20 mg Ondansetron HCl (Zofran Odt) 4 mg PO Q6H PRN PRN Reason: Nausea/Vomiting Sertraline HCl (Zoloft) 25 mg PO DAILY [facility] Last Admin: 03/03/19 08:43 Dose: 25 mg Discontinued Medications Albuterol/Ipratropium (Duoneb 3.0-0.5 Mg/3 Ml) 3 ml NEB Q6HRRT [facility] Last Admin: 02/23/19 06:00 Dose: 3 ml Budesonide (Pulmicort) 0.5 mg NEB BIDRT [facility] Ceftriaxone Sodium (Rocephin) 1 gm IVPUSH Q24H [facility] Last Admin: 02/16/19 15:59 Dose: 1 gm Enoxaparin Sodium (Lovenox) 40 mg SUBCUT Q24H [facility] Last Admin: 02/23/19 10:39 Dose: 40 mg Ondansetron HCl (Zofran) 4 mg IVPUSH Q6H PRN PRN Reason: Nausea/Vomiting Sodium Chloride (Saline Flush) 10 ml FLUSH Q8HR PRN PRN Reason: keep vein open Zolpidem Tartrate (Ambien) 5 mg PO BEDTIME [facility] Last Admin: 02/19/19 20:21 Dose: Not Given - Exam Quality Assessment: Reports: Supplemental Oxygen General: Reports: Alert, Oriented, Cooperative HEENT: Reports: Mucous Membr. Moist/[place] Neck: Reports: Supple Lungs: Reports: Clear to Auscultation, Normal Respiratory Effort Cardiovascular: Reports: Regular Rate, Regular Rhythm, No Murmurs GI/Abdominal Exam: Normal Bowel Sounds, Soft, Non-Tender Extremities: Normal Inspection, Normal Range of Motion, No Pedal Edema Skin: Reports: Warm, Dry, Intact Neurological: Reports: No New Focal Deficit Psy/Mental Status: Reports: Alert, Normal Affect, Normal Mood
== END 2019-03-03 10:50 | disposition home health service (06) | DRG 189 ==
LOC: KA.MS 11:08
PROVIDERS: ADMIT Nurse Practitioner Family; ATTEND Family Medicine
DX: J96.11 Chronic respiratory failure with hypoxia (principal); J44.9 Chronic obstructive pulmonary disease, unspecified; F17.210 Nicotine dependence, cigarettes, uncomplicated; I25.10 Atherosclerotic heart disease of native coronary artery without angina pectoris; I25.2 Old myocardial infarction; I12.9 Hypertensive chronic kidney disease with stage 1 through stage 4 chronic kidney disease, or unspecified chronic kidney disease; N18.3 Chronic kidney disease, stage 3 (moderate); E78.5 Hyperlipidemia, unspecified; E66.9 Obesity, unspecified; F41.9 Anxiety disorder, unspecified; F32.9 Major depressive disorder, single episode, unspecified; M85.80 Other specified disorders of bone density and structure, unspecified site; G47.00 Insomnia, unspecified; E78.00 Pure hypercholesterolemia, unspecified; M19.90 Unspecified osteoarthritis, unspecified site; Z96.659 Presence of unspecified artificial knee joint; Z71.6 Tobacco abuse counseling; Z88.1 Allergy status to other antibiotic agents; Z88.5 Allergy status to narcotic agent; Z88.0 Allergy status to penicillin; Z88.8 Allergy status to other drugs, medicaments and biological substances; Z79.82 Long term (current) use of aspirin; Z79.899 Other long term (current) drug therapy; Z95.5 Presence of coronary angioplasty implant and graft; Z90.710 Acquired absence of both cervix and uterus
CPT/HCPCS: 94640; 97110-GP; 97162-GP; A9270-GY; J0696; J1650; J7620-GY